=== PATIENT | male | born 1930 | race Caucasian/White ===

== ENCOUNTER 2018-05-24 11:53 | Inpatient (IN) ==
--- NOTE | 2018-05-24 12:48 | Emergency Department Note ---
General Adult HPI - General Chief complaint: Weakness Stated complaint: weakness Time Seen by Provider: 05/24/18 12:02 Source: patient, family Mode of arrival: wheelchair Limitations: physical limitation (pt in wheelchair, is able to stand and pivot with assistance.) - History of Present Illness HPI Narrative: 88-year-old male in ED with daughter and brother present. Patient was at wound care this morning and advised to come into the ED for a sepsis workup. Daughter states patient has had sepsis in the past and been hospitalized. Patient has had ongoing problems with his left diabetic foot ulcer, it gets better then it gets worse but it has never completely gone away. Patient was a sausage smoker up until this year when he was hospitalized. Patient lives at home with his grandson. Patient now uses wheelchair and does need assistance with transfers. Patient was supposed to be going to wound care twice a week and now goes as he chooses. Patient states he has no pain in his lower extremity, but he is irritated because he wants to be active again. Patient has used [employer] since age 18, does not use alcohol or marijuana. Onset (ago): year(s) (1) Location: left, lower extremity Radiation: non-radiation Associated symptoms: Reports: fever/chills, weakness. Denies: confusion, chest pain, cough, diaphoresis, headaches, loss of appetite, malaise, nausea/vomiting Treatments Prior to Arrival: other (wound care) - Related Data Home Medications Medication Instructions Recorded Confirmed Dutasteride [Avodart] 0.5 mg PO HS 05/24/18 05/24/18 Empagliflozin [Jardiance] 25 mg PO DAILY 05/24/18 05/24/18 Hydrochlorothiazide [Oretic] 25 mg PO DAILY 05/24/18 05/24/18 Insulin Degludec [Tresiba 10 unit SQ DAILY 05/24/18 05/24/18 Flextouch U-200] Lovastatin 40 mg PO QHS 05/24/18 05/24/18 Metoprolol Succinate [Toprol Xl] 25 mg PO DAILY 05/24/18 05/24/18 Repaglinide [Prandin] 1 mg PO TID 05/24/18 05/24/18 Rivaroxaban [Xarelto] 20 mg PO DAILY 05/24/18 05/24/18 Tamsulosin [Flomax] 0.4 mg PO HS 05/24/18 05/24/18 metFORMIN HCL [Metformin HCl] 1,000 mg PO DAILY 05/24/18 05/24/18 Allergies Allergy/AdvReac Type Severity Reaction Status Date / Time No Known Drug Allergies Allergy Verified 12/09/16 11:09 Review of Systems All systems ED: reviewed and negative except as stated. Past Medical History - Past Medical History PMFSH Narrative: All Active Problems Avulsion of skin (Acute) Left foot chronic diabetic ulcer on the plantar service the left first metatarsal head. Was hospitalized for this April 2015 and February 2018. Advanced arthritis bilateral knees, hypercholesteremia, some element of congestive heart failure, echocardiogram performed in December 2013 with results of mild increased left ventricular concentric hypertrophy. Grade 2 diastolic dysfunction noted based on the mitral inflow tract velocities. Mildly dilated right ventricle with preserved right ventricular systolic function along with biatrial enlargement. History of COPD, last A1c 2017 was 10.6% Medical history: Reports: non-contributory Surgical history ED: Reports: non-contributory - Social History smoking status: Former smoker Physical Exam Limitations: no limitations (wheelchair), physical limitation General appearance: alert, in no apparent distress Head: atraumatic, normocephalic, normal inspection Eye: Present: normal appearance, PERRL. Absent: conjunctival injection ENT: normal oropharynx, mucous membranes moist, TM's normal bilaterally, normal external ear exam Mouth: Present: tongue normal. Absent: lip swelling Teeth: Present: dental caries Throat: Present: normal inspection. Absent: tonsillar erythema, tonsillomegaly, tonsillar exudate Neck: Present: normal inspection. Absent: tenderness, lymphadenopathy Chest: Present: normal inspection, symmetric chest wall rise. Absent: tenderness Respiratory: Present: normal lung sounds bilaterally. Absent: respiratory distress, rales/crackles, wheezes Cardiovascular: Present: irregular rhythm Abdominal: Present: soft, normal bowel sounds. Absent: distention, tenderness, guarding, rebound, rigidity Extremities: Present: other (see wound care notes under medical history) Back: Present: normal inspection. Absent: tenderness, CVA tenderness (R), CVA tenderness (L) Neurological: Present: alert, oriented X3. Absent: normal gait Psychiatric: Present: normal affect, normal mood. Absent: depressed, agitated, anxious, flat affect Skin: Present: warm, dry, intact, normal color. Absent: cool, diaphoretic Course Vital Signs Temperature 99.8 F H 05/24/18 11:53 Pulse Rate 69 05/24/18 11:53 Respiratory Rate 18 05/24/18 11:53 Blood Pressure 122/68 05/24/18 11:53 Pulse Oximetry (%) 100 05/24/18 11:53 Temperature 99.1 F H 05/24/18 14:00 Pulse Rate 95 H 05/24/18 14:24 Respiratory Rate 18 05/24/18 14:24 Blood Pressure 122/62 05/24/18 14:24 Pulse Oximetry (%) 95 05/24/18 14:24 Medical Decision Making - MDM Narrative Medical decision making narrative: Patient did have a 101.3 temperature at wound care, upon arrival 99.6. 1 L normal saline was started after WBC returned 3.375 Zosyn IV administered. Patient's WBC 20.2, PT 16.5, INR 1.3H does have A. fib and is on Xarelto, sodium 131, carbon dioxide 19, anion gap 18, BUN 37, creatinine 1.6, glucose 274 lactic acid 4.1 Consulted who advised to place pt on vancomycin. Patient to be admitted. Consulted who advised he would consult with Mora later in the afternoon and see patient this evening. - Medical Records Medical records reviewed: Yes I reviewed the patient's medical records. Patient was admitted to [facility] February 26, 2018 for left leg cellulitis, severe sepsis complicated by acute tubular necrosis and metabolic encephalo radha, A. fib. Patient was discharged 3 days later. Wound care notes from 05/24/2018 visit: Left metatarsal head diabetic ulcer length 0.7, width 0.6, depth 0.3, non- tunneling, grade 2 with scant exudate. Left lower leg with skin tear, acute, length 0.6 cm, with 0.6, depth 0.1, non-tunneling. Left lower leg erythema 37 cm x 37.5 - Lab Data Lab results reviewed: Yes I reviewed the patient's lab results. Result diagrams: 05/24/18 12:28 05/24/18 12:28 Lab Results 05/24/18 05/24/18 05/24/18 Range/Units 12:28 12:28 12:28 WBC 20.2 H (4.5-11.0) K/mcL RBC 4.99 (4.50-5.90) M/mcL Hgb 14.4 (13.5-16.5) g/dL Hct 44.4 (41.0-55.0) % MCV 89.0 (80.0-100.0) fL MCH 28.8 (26.0-34.0) pg MCHC 32.4 (31.0-36.0) g/dL RDW 15.3 H (11.5-14.5) % Plt Count 152 (140-440) K/mcL MPV 9.1 (7.4-10.4) fL Gran % 94.7 H (38.0-78.0) % Lymph % (Auto) 3.6 L (15.5-49.0) % [place] % (Auto) 1.6 (1.0-12.0) % Eos % (Auto) 0.1 (0.0-7.0) % Baso % (Auto) 0 (0.0-2.0) % Gran # 19.1 H (1.8-8.0) K/mcL Lymph # (Auto) 0.7 L (1.5-4.8) K/mcL [place] # (Auto) 0.3 (0.1-0.9) K/mcL Eos # (Auto) 0 (0.0-0.7) K/mcL Baso # (Auto) 0 (0.0-0.3) K/mcL PT (11.9-14.5) sec INR (0.9-1.1) APTT (20-37) sec VBG Lactic Acid 4.1 H* (0.5-2.0) mmol/L Sodium 131 L (133-145) mmol/L Potassium 3.6 (3.3-5.1) mmol/L Chloride 94 L (96-108) mmol/L Carbon Dioxide 19 L (22-30) mmol/L Anion Gap 18.0 H (8-16) BUN 37 H (8-23) mg/dl Creatinine 1.6 H (0.7-1.2) mg/dl GFR Calculation 38 Glucose 274 H (70-105) mg/dL Calcium 9.3 (8.6-10.4) mg/dl Total Bilirubin 0.9 (0.0-1.0) mg/dL AST 24 (0-37) U/l ALT 14 (0-40) U/l Alkaline Phosphatase 86 (39-117) U/L Total Protein 7.9 (5.9-8.4) gm/dL Albumin 3.9 (3.2-5.2) gm/dL Globulin 4.0 H (2.2-3.7) gm/dL Albumin/Globulin Ratio 1.0 (1.0-2.3) 05/24/18 Range/Units 12:28 WBC (4.5-11.0) K/mcL RBC (4.50-5.90) M/mcL Hgb (13.5-16.5) g/dL Hct (41.0-55.0) % MCV (80.0-100.0) fL MCH (26.0-34.0) pg MCHC (31.0-36.0) g/dL RDW (11.5-14.5) % Plt Count (140-440) K/mcL MPV (7.4-10.4) fL Gran % (38.0-78.0) % Lymph % (Auto) (15.5-49.0) % [place] % (Auto) (1.0-12.0) % Eos % (Auto) (0.0-7.0) % Baso % (Auto) (0.0-2.0) % Gran # (1.8-8.0) K/mcL Lymph # (Auto) (1.5-4.8) K/mcL [place] # (Auto) (0.1-0.9) K/mcL Eos # (Auto) (0.0-0.7) K/mcL Baso # (Auto) (0.0-0.3) K/mcL PT 16.5 H (11.9-14.5) sec INR 1.3 H (0.9-1.1) APTT 36 (20-37) sec VBG Lactic Acid (0.5-2.0) mmol/L Sodium (133-145) mmol/L Potassium (3.3-5.1) mmol/L Chloride (96-108) mmol/L Carbon Dioxide (22-30) mmol/L Anion Gap (8-16) BUN (8-23) mg/dl Creatinine (0.7-1.2) mg/dl GFR Calculation Glucose (70-105) mg/dL Calcium (8.6-10.4) mg/dl Total Bilirubin (0.0-1.0) mg/dL AST (0-37) U/l ALT (0-40) U/l Alkaline Phosphatase (39-117) U/L Total Protein (5.9-8.4) gm/dL Albumin (3.2-5.2) gm/dL Globulin (2.2-3.7) gm/dL Albumin/Globulin Ratio (1.0-2.3) - Radiology Data Radiology results reviewed: Yes I reviewed the patient's radiology results. Chest x-ray: FINDINGS: The lungs are clear and normally expanded. The heart is mildly enlarged but magnified by portable technique. There is no congestive heart failure or pleural effusion. The aorta is mildly tortuous. IMPRESSION: Borderline cardiomegaly and no evidence of pneumonia Tib-fib x-ray: Normal exam Left foot x-ray: HISTORY: Left foot pain and possible osteomyelitis FINDINGS: There is a severe hallux valgus deformity at the first metatarsal phalangeal joint. Joint space is mildly narrowed and there are small marginal spurs. Remainder of the foot is normal. There is no fracture or dislocation. No bone erosion or periosteal elevation are present. IMPRESSION: Hallux valgus deformity and no evidence of osteomyelitis Disposition Pt seen by FOOD SERVICE COORDINATOR/PA only: No (Marnie) Clinical Impression: Sepsis Qualifiers: Sepsis type: sepsis due to unspecified organism Qualified Code(s): A41.9 - Sepsis, unspecified organism Disposition: Xfer As Inpt ([facility]) Condition: Fair Referrals: Melania Yi ARNP [Primary Care Provider] - Time of Disposition: 14:34
[2018-05-24 12:54] LABS: Basophils # (Auto) 0 K/mcL (0.0-0.3); Basophils % (Auto) 0 % (0.0-2.0); Eosinophils # (Auto) 0 K/mcL (0.0-0.7); Eosinophils % (Auto) 0.1 % (0.0-7.0); Granulocytes % (Auto) 94.7 % (38.0-78.0); Lymphocytes # (Auto) 0.7 K/mcL (1.5-4.8); Lymphocytes % (Auto) 3.6 % (15.5-49.0); Mean Corpuscular HGB Conc 32.4 g/dL (31.0-36.0); Monocytes # (Auto) 0.3 K/mcL (0.1-0.9); Monocytes % (Auto) 1.6 % (1.0-12.0); Platelet Count 152 K/mcL (140-440); RBC 4.99 M/mcL (4.50-5.90); Red Cell Distribution Width 15.3 % (11.5-14.5)
[2018-05-24 13:19] LABS: ALT/SGPT 14 U/l (0-40); Albumin 3.9 gm/dL (3.2-5.2); Alkaline Phosphatase 86 U/L (39-117); Blood Urea Nitrogen 37 mg/dl (8-23)
[2018-05-24] MEDS ORDERED: 0.9 % SODIUM CHLORIDE 1,000 ML IV ONE ×5 (13:19→18:50)
[2018-05-24] MEDS ORDERED: PIPERACILLIN SODIUM/TAZOBACTAM 3.375 GM in DEXTROSE 5% IN WATER 50 ML IV ONE (13:19)
--- NOTE | 2018-05-24 13:57 | XRay Report ---
HISTORY: Sepsis and weakness FINDINGS: The lungs are clear and normally expanded. The heart is mildly enlarged but magnified by portable technique. There is no congestive heart failure or pleural effusion. The aorta is mildly tortuous. IMPRESSION: Borderline cardiomegaly and no evidence of pneumonia Interpreted and Authenticated by: Richard Bush 05/24/18
--- NOTE | 2018-05-24 13:58 | XRay Report ---
HISTORY: Sepsis, leg pain and evaluate for osteomyelitis FINDINGS: Three views of the left lower leg were obtained. There is moderately severe arthritis in the knee predominantly involving the medial joint compartment. The tibia and fibula are normally mineralized. There is no bone erosion or periosteal elevation. No fracture or destructive bone lesion are present. The ankle joint space appears normal. IMPRESSION: No evidence of osteomyelitis or acute bony injury Interpreted and Authenticated by: Richard Bush 05/24/18
--- NOTE | 2018-05-24 14:00 | XRay Report ---
HISTORY: Left foot pain and possible osteomyelitis FINDINGS: There is a severe hallux valgus deformity at the first metatarsal phalangeal joint. Joint space is mildly narrowed and there are small marginal spurs. Remainder of the foot is normal. There is no fracture or dislocation. No bone erosion or periosteal elevation are present. IMPRESSION: Hallux valgus deformity and no evidence of osteomyelitis Interpreted and Authenticated by: Richard Bush 05/24/18
[2018-05-24] MEDS ORDERED: VANCOMYCIN 500 MG in 0.9 % SODIUM CHLORIDE 100 ML IV ONE ×2 (14:21→16:00)
[2018-05-24] MEDS ORDERED: VANCOMYCIN 1,000 MG in 0.9 % SODIUM CHLORIDE 250 ML IV ONE (14:25)
[2018-05-24 14:37] LABS: Appearance,Urine CLEAR; Bacteria,Urine 0 /hpf (0); Bilirubin,Urine NEG (NEG); Color,Urine YELLOW; Glucose,Urine (UA) >=500 mg/dL (NEG); Leukocyte Esterase,Urine NEG /uL (NEG); Mucus,Urine FEW /hpf (0); Protein,Urine 30 mg/dL (NEG); Specific Gravity,Urine 1.028 (1.000-1.035); Urine Blood 0.03 mg/dL (<0.03); Urine RBC 0 /hpf (0-1); Urine Squamous Epithelial Cell 0 /hpf (0-4); Urine WBC < 1 /hpf (0-4); Urobilinogen,Urine NEG (NEG)
--- NOTE | 2018-05-24 14:38 | Internal Med History&Physical ---
Medical - H&P: [facility] Patient information: Note initiated : 05/24/18 at 2:37 pm Service Date, if different from initiated Date: [] Patient: Marcos,Asa a 88 y/o M admitted on for weakness. Chief Complaint: [] Chief complaint: weakness, fever History of present illness: Mr. Rodríguez is a 88 year old M known diabetic with medications including foot ulcers/neuropathy being managed the wound care clinic. Patient presents to the ER with 2 days' onset of worsening weakness inability to bear weight and pain along with redness involving left lower extremity. Patient endorses associated shaking chills and fever along with increasing malaise. Per family patient has been quite active until recently and has had a progressive decline since development of lower extremity ulcer. he lives at [facility] and receives help from his grandson Papo. He denies recent fall, trauma, sick contacts rate he denies chest pain headache but feels very weak and lethargic and was able to only answering yes and no. Initial workup was consistent with severe sepsis [place] [address], lactic acid of 4.1 and fever of 102. Patient was started on broad antibiotic coverage after cultures were drawn. Subsequently hospitalist service was consulted At the time evaluation patient is in extreme distress unable to talk experiencing rigors. Blood pressure dropped with heart rate consistently around 130. 4 L of crystalloids was rapidly infused along with initiation of pressors after multiple IV accesses were secured. Initial [place] score 16. Review of systems 10 point review of system was performed and is negative except for discussed above Medical - H&P: PMH Medical history: DM type II diabetic foot ulcer Hypertension Diabetic neuropathy Hyperlipidemia Anticoagulation on rivaroxaban Atrial fibrillation Degenerative joint disease History of COPD Pertinent family history: Nonrelevant to presenting symptoms Social history: Lives in [facility] with his grandson Former smoker Medical - H&P: Meds Home Medications Medication Instructions Recorded Confirmed Type Dutasteride [Avodart] 0.5 mg PO HS 05/24/18 05/24/18 History Empagliflozin [Jardiance] 25 mg PO DAILY 05/24/18 05/24/18 History Hydrochlorothiazide [Oretic] 25 mg PO DAILY 05/24/18 05/24/18 History Insulin Degludec [Tresiba 10 unit SQ DAILY 05/24/18 05/24/18 History Flextouch U-200] Lovastatin 40 mg PO QHS 05/24/18 05/24/18 History Metoprolol Succinate [Toprol Xl] 25 mg PO DAILY 05/24/18 05/24/18 History Repaglinide [Prandin] 1 mg PO TID 05/24/18 05/24/18 History Rivaroxaban [Xarelto] 20 mg PO DAILY 05/24/18 05/24/18 History Tamsulosin [Flomax] 0.4 mg PO HS 05/24/18 05/24/18 History metFORMIN HCL [Metformin HCl] 1,000 mg PO DAILY 05/24/18 05/24/18 History Allergies Allergy/AdvReac Type Severity Reaction Status Date / Time No Known Drug Allergies Allergy Verified 12/09/16 11:09 Medical - H&P: Exam - Constitutional Vitals: Temp Pulse Resp BP Pulse Ox 99.1 F H 95 H 18 122/62 95 05/24/18 14:00 05/24/18 14:24 05/24/18 14:24 05/24/18 14:24 05/24/18 14:24 General appearance: moderate distress Exam: Extreme distress from riders Head normocephalic Lethargic and confused Oral cavity dry parched lips Neck no lymphadenopathy No ear discharge S1 and S2 tachycardia irregular Diminished breath sounds bases Abdomen soft nontender Lower extremity- extensive cellulitis with petechial changes left lower extremity Also upper lateral left leg, lymphangitis change except extending to the groin medially Skin no suspicious lesion Psych lethargic fatigue Neuro very distressed and unable to respond to questions however moving all 4 extremities Medical - H&P: Reslt - Labs CBC & Chem 7: 05/25/18 03:50 05/25/18 03:50 Labs: Short CBC 05/24/18 Range/Units 12:28 WBC 20.2 H (4.5-11.0) K/mcL Hgb 14.4 (13.5-16.5) g/dL Hct 44.4 (41.0-55.0) % Plt Count 152 (140-440) K/mcL BMP 05/24/18 12:28 Sodium 131 L Potassium 3.6 Chloride 94 L Carbon Dioxide 19 L BUN 37 H Creatinine 1.6 H Glucose 274 H Calcium 9.3 Liver Function 05/24/18 Range/Units 12:28 Total Bilirubin 0.9 (0.0-1.0) mg/dL AST 24 (0-37) U/l ALT 14 (0-40) U/l Alkaline Phosphatase 86 (39-117) U/L Albumin 3.9 (3.2-5.2) gm/dL Medical - H&P: A/P (1) Septic shock Current visit: Yes Status: Acute * Septic shock-secondary to left lower extremity cellulitis/lymphangitis. Wound care consulted. Broad antibiotic coverage. Over 4 L crystalloid infused. Continue pressors to keep map over 65. Panculturs. Lactate 4.1. Trend venous lactate. White count 20.2, pH 7.34. Secure central venous access * Left lower extremity cellulitis with lymphangitis-underlying diabetes. Empiric coverage for gram-negative, anaerobes, staph and strep. Wound care consulted * Acute mental status change secondary to sepsis end organ dysfunction * Acute renal failure secondary to septic shock. Aggressive crystalloids and continue monitoring renal function/urine output. * DM type II, basal prandial insulin * History of atrial fibrillation -rate controlled on metoprolol * Anticoagulation continue rivaroxaban * Hyperlipidemia continue statin * DNR Plan * Sepsis management per guidelines * Crystalloids, vasopressors, lower extremity CT in 24-48 hours once creatinine improves, cultures, but venous lactate trending * Pre-existing medical condition management on home meds * monitor renal function * Very high risk mortality admitted to ICU in light of [place] score 16 and septic shock Total critical care time spent on management of septic shock in this patient with cellulitis lymphangitis with acute end organ dysfunction including over 35 minutes. An additional 70 minutes spent on history and physical, interpretation lab and imaging and discussion with ER physician
[2018-05-24] MEDS ORDERED: HYDROmorphone 2 MG/ML VIAL IV ONE (14:47)
[2018-05-24] MEDS ORDERED: DEXTROSE 50% 50 ML VIAL IV PRN ×2 (15:35→20:35)
[2018-05-24] MEDS ORDERED: POTASSIUM CHLORIDE 20 MEQ PACKET PO PRN ×2 (15:35→20:35)
[2018-05-24] MEDS ORDERED: ACETAMINOPHEN 1,000 MG/100 ML BOTTLE IV PRN ×2 (15:35→20:35)
[2018-05-24] MEDS ORDERED: VANCOMYCIN PER PHARMACY IV SCH ×2 (15:35→20:35)
[2018-05-24] MEDS ORDERED: IPRATROPIUM/ALBUTEROL 3 ML AMPUL.NEB NEB PRN ×2 (15:35→20:35)
[2018-05-24] MEDS ORDERED: DEXTROSE 31 GM ORAL.SUSP PO PRN ×2 (15:35→20:35)
[2018-05-24] MEDS ORDERED: MAGNESIUM SULFATE 2 GM/50 ML BAG IV PRN ×2 (15:35→20:35)
[2018-05-24] MEDS ORDERED: ACETAMINOPHEN 325 MG TABLET PO PRN ×2 (15:35→20:35)
[2018-05-24] MEDS ORDERED: ONDANSETRON 4 MG/2 ML VIAL IV PRN ×2 (15:35→20:35)
[2018-05-24] MEDS ORDERED: 0.9 % SODIUM CHLORIDE 1,000 ML IV SCH ×3 (15:35→20:35)
[2018-05-24 16:14] LABS: ABG Methemoglobin 0 % (0.4-1.5); VBG Base Excess -9.5 (-2.0-2.0); VBG HCO3 14.7 mmol/L (24.0-28.0); VBG Oxygen Saturation 87.7 % (40.0-70.0); VBG PCO2 27.8 mmHg (41.0-51.0); VBG PH 7.34 U (7.32-7.42); VBG PO2 64 mmHg (25-40); VBG Total CO2 15.5 mmol/L (25.0-29.0)
[2018-05-24 16:42] LABS: C-Reactive Protein 21.7 mg/dl (0.0-0.8)
[2018-05-24] MEDS ORDERED: INSULIN LISPRO 1 UNIT/0.01 ML UNIT SQ SCH (17:00)
[2018-05-24] MEDS ORDERED: REPAGLINIDE 1 MG TABLET PO SCH (17:30)
[2018-05-24] MEDS ORDERED: 0.9 % SODIUM CHLORIDE 250 ML IV SCH (17:45)
[2018-05-24] MEDS ORDERED: NOREPINEPHRINE BITARTRATE 16 MG in 0.9 % SODIUM CHLORIDE 234 ML IV SCH (18:00)
[2018-05-24] MEDS ORDERED: NOREPINEPHRINE BITARTRATE 4 MG/4 ML VIAL IV ONE (18:07)
[2018-05-24] MEDS: PIPERACILLIN SODIUM/TAZOBACTAM 3.375 GM in DEXTROSE 5% IN WATER 50 ML IV SCH (18:25)
--- NOTE | 2018-05-24 19:41 | General Surgery Consult Note ---
History of Present Illness Patient information: Note initiated : 05/24/18 at 7:32 pm Service Date, if different from initiated Date: [] Patient: MarcosAsa a 88 y/o M admitted on 05/24/18 for weakness. Chief Complaint: [] Consult date: 05/24/18 Requesting physician: Yordy Velazco (Wound / Skin sepsis) History of present illness: I saw this patient in ICU 120-C along with Dr. Velazco Hospitalist physician and Joyce / Velma RNs ICU. Mr. Rodríguez is an established patient at wound care center, [facility]. He was admitted to ICU after evaluation in in Wound Center and ER earlier today. Patient had significant interval change in his presentation, Fever, tachycardia, leucocytosis with sepsis due to csssi, phlebitis of varicose vein and swelling of LEFT leg, He has a chronic DFU Seo 2; under left 1 st metatarsal head. 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 X Ray is negative for osteomyelitis. He has chronic degenerative changes. Chest X Ray is negative for pneumonia and CHF. He has borderline cardiomegaly. Medications and Allergies Home Medications Medication Instructions Recorded Confirmed Type Dutasteride [Avodart] 0.5 mg PO HS 05/24/18 05/24/18 History Empagliflozin [Jardiance] 25 mg PO DAILY 05/24/18 05/24/18 History Hydrochlorothiazide [Oretic] 25 mg PO DAILY 05/24/18 05/24/18 History Insulin Degludec [Tresiba 10 unit SQ DAILY 05/24/18 05/24/18 History Flextouch U-200] Metoprolol Succinate [Toprol Xl] 25 mg PO DAILY 05/24/18 05/24/18 History RX: Lovastatin 40 mg PO QHS 05/24/18 05/24/18 History Repaglinide [Prandin] 1 mg PO TID 05/24/18 05/24/18 History Rivaroxaban [Xarelto] 20 mg PO DAILY 05/24/18 05/24/18 History Tamsulosin [Flomax] 0.4 mg PO HS 05/24/18 05/24/18 History metFORMIN HCL [Metformin HCl] 1,000 mg PO DAILY 05/24/18 05/24/18 History Allergies Allergy/AdvReac Type Severity Reaction Status Date / Time No Known Drug Allergies Allergy Verified 12/09/16 11:09 Exam Temp Pulse Resp BP Pulse Ox 105.2 F H 122 H 21 133/70 93 05/24/18 16:16 05/24/18 15:20 05/24/18 16:16 05/24/18 16:16 05/24/18 16:16 - General physical appearance well developed, well nourished, no distress, no pain, chronically ill - Eyes PERRL, normal ocular movement - ENT normal pinna, normal nares, normal mucosa, no congestion, poor shelter (Multiple caries teeth ) - Head Head exam IM: Present: atraumatic, normal inspection, normocephalic - Neck no masses, trachea midline, no venous distension - Cardiovascular Cardiovascular exam IM: Present: irregular rhythm, tachycardia - Respiratory normal respiratory effort, clear to auscultation - Abdomen Abdomen: Present: soft, non tender, bowel sounds - Integumentary Present: other (Phlebitis, periphlebitis along lower 2/3 of left leg around torutouous varicosities of veins. Local warmth, erythema, pigmentation and tenderness. See demarcation line drawn around discolored skin,) - Neurologic Present: confused, other (Peripheral mixed diabetic neuropathy left foot and leg >> than right foot / leg. ) - Musculoskeletal Present: other (Hallux valgus left great toe with DFU Seo 2; under 1 st metatarsal head . ) - Psychiatric Present: other (confused. ) Results - Labs 05/25/18 03:50 05/25/18 03:50 Abnormal lab results 05/24/18 05/24/18 05/24/18 Range/Units 12:28 12:28 12:28 WBC 20.2 H (4.5-11.0) K/mcL RDW 15.3 H (11.5-14.5) % Gran % 94.7 H (38.0-78.0) % Lymph % (Auto) 3.6 L (15.5-49.0) % Gran # 19.1 H (1.8-8.0) K/mcL Lymph # (Auto) 0.7 L (1.5-4.8) K/mcL ESR (0-15) mm/hr PT (11.9-14.5) sec INR (0.9-1.1) ABG Methemoglobin (0.4-1.5) % VBG pCO2 (41.0-51.0) mmHg VBG pO2 (25-40) mmHg VBG HCO3 (24.0-28.0) mmol/L VBG Total CO2 (25.0-29.0) mmol/L VBG O2 Saturation (40.0-70.0) % VBG Base Excess (-2.0-2.0) VBG Lactic Acid 4.1 H* (0.5-2.0) mmol/L Carboxyhemoglobin (0.0-1.5) % THgb Total Hemoglobin (13.5-16.5) gm/dL Sodium 131 L (133-145) mmol/L Chloride 94 L (96-108) mmol/L Carbon Dioxide 19 L (22-30) mmol/L Anion Gap 18.0 H (8-16) BUN 37 H (8-23) mg/dl Creatinine 1.6 H (0.7-1.2) mg/dl Glucose 274 H (70-105) mg/dL C-Reactive Protein (0.0-0.8) mg/dl Globulin 4.0 H (2.2-3.7) gm/dL Urine Protein (NEG) mg/dL Urine Glucose (UA) (NEG) mg/dL Urine Ketones (NEG) mg/dL Urine Occult Blood (<0.03) mg/dL 05/24/18 05/24/18 05/24/18 Range/Units 12:28 14:00 15:51 WBC (4.5-11.0) K/mcL RDW (11.5-14.5) % Gran % (38.0-78.0) % Lymph % (Auto) (15.5-49.0) % Gran # (1.8-8.0) K/mcL Lymph # (Auto) (1.5-4.8) K/mcL ESR 36 H (0-15) mm/hr PT 16.5 H (11.9-14.5) sec INR 1.3 H (0.9-1.1) ABG Methemoglobin (0.4-1.5) % VBG pCO2 (41.0-51.0) mmHg VBG pO2 (25-40) mmHg VBG HCO3 (24.0-28.0) mmol/L VBG Total CO2 (25.0-29.0) mmol/L VBG O2 Saturation (40.0-70.0) % VBG Base Excess (-2.0-2.0) VBG Lactic Acid (0.5-2.0) mmol/L Carboxyhemoglobin (0.0-1.5) % THgb Total Hemoglobin (13.5-16.5) gm/dL Sodium (133-145) mmol/L Chloride (96-108) mmol/L Carbon Dioxide (22-30) mmol/L Anion Gap (8-16) BUN (8-23) mg/dl Creatinine (0.7-1.2) mg/dl Glucose (70-105) mg/dL C-Reactive Protein (0.0-0.8) mg/dl Globulin (2.2-3.7) gm/dL Urine Protein 30 A (NEG) mg/dL Urine Glucose (UA) >=500 A (NEG) mg/dL Urine Ketones 5/tr A (NEG) mg/dL Urine Occult Blood 0.03 A (<0.03) mg/dL 05/24/18 05/24/18 Range/Units 15:51 15:51 WBC (4.5-11.0) K/mcL RDW (11.5-14.5) % Gran % (38.0-78.0) % Lymph % (Auto) (15.5-49.0) % Gran # (1.8-8.0) K/mcL Lymph # (Auto) (1.5-4.8) K/mcL ESR (0-15) mm/hr PT (11.9-14.5) sec INR (0.9-1.1) ABG Methemoglobin 0 L (0.4-1.5) % VBG pCO2 27.8 L (41.0-51.0) mmHg VBG pO2 64 H (25-40) mmHg VBG HCO3 14.7 L (24.0-28.0) mmol/L VBG Total CO2 15.5 L (25.0-29.0) mmol/L VBG O2 Saturation 87.7 H (40.0-70.0) % VBG Base Excess -9.5 L (-2.0-2.0) VBG Lactic Acid (0.5-2.0) mmol/L Carboxyhemoglobin 3.4 H (0.0-1.5) % THgb Total Hemoglobin 13.0 L (13.5-16.5) gm/dL Sodium (133-145) mmol/L Chloride (96-108) mmol/L Carbon Dioxide (22-30) mmol/L Anion Gap (8-16) BUN (8-23) mg/dl Creatinine (0.7-1.2) mg/dl Glucose (70-105) mg/dL C-Reactive Protein 21.7 H (0.0-0.8) mg/dl Globulin (2.2-3.7) gm/dL Urine Protein (NEG) mg/dL Urine Glucose (UA) (NEG) mg/dL Urine Ketones (NEG) mg/dL Urine Occult Blood (<0.03) mg/dL Diabetes panel 05/24/18 Range/Units 12:28 Sodium 131 L (133-145) mmol/L Potassium 3.6 (3.3-5.1) mmol/L Chloride 94 L (96-108) mmol/L Carbon Dioxide 19 L (22-30) mmol/L BUN 37 H (8-23) mg/dl Creatinine 1.6 H (0.7-1.2) mg/dl Glucose 274 H (70-105) mg/dL Calcium 9.3 (8.6-10.4) mg/dl AST 24 (0-37) U/l ALT 14 (0-40) U/l Alkaline Phosphatase 86 (39-117) U/L Total Protein 7.9 (5.9-8.4) gm/dL Albumin 3.9 (3.2-5.2) gm/dL Calcium panel 05/24/18 Range/Units 12:28 Calcium 9.3 (8.6-10.4) mg/dl Albumin 3.9 (3.2-5.2) gm/dL Pituitary panel 05/24/18 Range/Units 12:28 Sodium 131 L (133-145) mmol/L Potassium 3.6 (3.3-5.1) mmol/L Chloride 94 L (96-108) mmol/L Carbon Dioxide 19 L (22-30) mmol/L BUN 37 H (8-23) mg/dl Creatinine 1.6 H (0.7-1.2) mg/dl Glucose 274 H (70-105) mg/dL Calcium 9.3 (8.6-10.4) mg/dl Adrenal panel 05/24/18 Range/Units 12:28 Sodium 131 L (133-145) mmol/L Potassium 3.6 (3.3-5.1) mmol/L Chloride 94 L (96-108) mmol/L Carbon Dioxide 19 L (22-30) mmol/L BUN 37 H (8-23) mg/dl Creatinine 1.6 H (0.7-1.2) mg/dl Glucose 274 H (70-105) mg/dL Calcium 9.3 (8.6-10.4) mg/dl Total Bilirubin 0.9 (0.0-1.0) mg/dL AST 24 (0-37) U/l ALT 14 (0-40) U/l Alkaline Phosphatase 86 (39-117) U/L Total Protein 7.9 (5.9-8.4) gm/dL Albumin 3.9 (3.2-5.2) gm/dL All other labs normal. Assessment and Plan (1) Sepsis Assessment: Acute exacerbation of csssi left foot lower leg dermatitis and post phlebitis syndrome skin . SUPERADDED PHLEBITIS OF VARICOSE VEINS Left medial leg. Plan: Conservative management. See wound care orders. Will follow along with hospitalist during this hospitalization. 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
[2018-05-24] MEDS ORDERED: NICOTINE 21 MG PATCH TOPICAL ONE (20:08)
[2018-05-24] MEDS ORDERED: NICOTINE 21 MG PATCH ONE (20:18)
[2018-05-24] MEDS ORDERED: TAMSULOSIN 0.4 MG CAPSULE PO SCH (21:00)
[2018-05-24] MEDS ORDERED: SENNOSIDES/DOCUSATE SODIUM 1 TAB TABLET PO SCH (21:00)
[2018-05-24] MEDS ORDERED: DOCUSATE SODIUM 100 MG CAPSULE PO SCH (21:00)
[2018-05-24] MEDS ORDERED: DUTASTERIDE 0.5 MG CAPSULE PO SCH (21:00)
[2018-05-24] MEDS ORDERED: SIMVASTATIN 20 MG TABLET PO SCH (21:00)
[2018-05-24] MEDS: 0.9 % SODIUM CHLORIDE 1,000 ML IV SCH (21:48)
[2018-05-24] MEDS: 0.9 % SODIUM CHLORIDE 250 ML IV SCH (21:48)
[2018-05-24] MEDS: TAMSULOSIN 0.4 MG CAPSULE PO SCH (21:53)
[2018-05-24] MEDS: DOCUSATE SODIUM 100 MG CAPSULE PO SCH (21:54)
[2018-05-24] MEDS: SENNOSIDES/DOCUSATE SODIUM 1 TAB TABLET PO SCH (21:55)
[2018-05-24] MEDS: INSULIN LISPRO 1 UNIT/0.01 ML UNIT SQ SCH (21:55)
[2018-05-24] MEDS: DUTASTERIDE 0.5 MG CAPSULE PO SCH (21:56)
[2018-05-24] MEDS: SIMVASTATIN 20 MG TABLET PO SCH (21:57)
[2018-05-24] MEDS ORDERED: 0.9 % SODIUM CHLORIDE 10 ML SYRINGE IV SCH (22:00)
[2018-05-24] MEDS: 0.9 % SODIUM CHLORIDE 10 ML SYRINGE IV SCH (22:07)
[2018-05-25] MEDS: PIPERACILLIN SODIUM/TAZOBACTAM 3.375 GM in DEXTROSE 5% IN WATER 50 ML IV SCH ×5 (00:36→18:32)
[2018-05-25 04:58] LABS: Mean Cell Volume 90.8 fL (80.0-100.0); Mean Corpuscular HGB Conc 32.1 g/dL (31.0-36.0); Platelet Count 110 K/mcL (140-440); RBC 3.96 M/mcL (4.50-5.90); Red Cell Distribution Width 15.2 % (11.5-14.5)
[2018-05-25 05:19] LABS: ALT/SGPT 45 U/l (0-40); Albumin 2.7 gm/dL (3.2-5.2); Albumin/Globulin Ratio 0.9 (1.0-2.3); Alkaline Phosphatase 65 U/L (39-117); Bilirubin,Direct < 0.2 mg/dL (0.0-0.3); Blood Urea Nitrogen 33 mg/dl (8-23); Gamma Glutamyl Transpeptidase 25 U/L (8-61); Uric Acid 5.6 mg/dL (2.5-8.0)
[2018-05-25] MEDS: 0.9 % SODIUM CHLORIDE 10 ML SYRINGE IV SCH ×4 (05:51→22:14)
[2018-05-25 06:18] LABS: Band Neutrophils % 4 % (0-10); Lymphocytes % 11 % (15-49); Monocytes % (Manual) 7 % (1-12); Platelet Estimate DECREASED (NORMAL); RBC Morphology NORMAL (NORMAL); Segmented Neutrophils % 78 % (38-78)
[2018-05-25] MEDS: REPAGLINIDE 1 MG TABLET PO SCH ×3 (07:30→18:32)
[2018-05-25] MEDS ORDERED: RIVAROXABAN 15 MG TABLET PO SCH (08:00)
[2018-05-25] MEDS: INSULIN LISPRO 1 UNIT/0.01 ML UNIT SQ SCH ×4 (08:46→22:13)
[2018-05-25] MEDS: INSULIN GLARGINE, HUMAN 1 UNIT/0.01 ML SQ SCH (08:48)
[2018-05-25] MEDS ORDERED: sitaGLIPtin 50 MG TABLET PO SCH (09:00)
[2018-05-25] MEDS ORDERED: INSULIN GLARGINE, HUMAN 1 UNIT/0.01 ML SQ SCH (09:00)
[2018-05-25] MEDS ORDERED: VANCOMYCIN 1,500 MG in 0.9 % SODIUM CHLORIDE 500 ML IV SCH (09:00)
[2018-05-25] MEDS ORDERED: EMPAGLIFLOZIN 25 MG PO SCH (09:00)
[2018-05-25] MEDS ORDERED: METOPROLOL SUCCINATE 25 MG TAB.XL.24H PO SCH (09:00)
[2018-05-25] MEDS ORDERED: MULTIVIT,THER IRON,CA,FA & MIN 1 TABLET PO SCH (09:00)
[2018-05-25] MEDS: VANCOMYCIN 1,500 MG in 0.9 % SODIUM CHLORIDE 500 ML IV SCH (09:00)
[2018-05-25] MEDS ORDERED: 0.9 % SODIUM CHLORIDE 10 ML SYRINGE IV PRN (09:09)
--- NOTE | 2018-05-25 09:11 | Internal Med Progress Note ---
Medical - PN: Subj Patient information: Note initiated : 05/25/18 at 9:06 am Service Date, if different from initiated Date: [] Patient: Marcos,Asa a 88 y/o M admitted on 05/24/18 for weakness. Chief Complaint: [] Interval history: Mr. Rodríguez is a 88 year old M known diabetic with medications including foot ulcers/neuropathy being managed the wound care clinic. Patient presents to the ER with 2 days' onset of worsening weakness inability to bear weight and pain along with redness involving left lower extremity. Patient endorses associated shaking chills and fever along with increasing malaise. Per family patient has been quite active until recently and has had a progressive decline since development of lower extremity ulcer. he lives at [facility] and receives help from his grandson Papo. He denies recent fall, trauma, sick contacts rate he denies chest pain headache but feels very weak and lethargic and was able to only answering yes and no. Initial workup was consistent with severe [place] [address], lactic acid of 4.1 and fever of 102. Patient was started on broad antibiotic coverage after cultures were drawn. Subsequently hospitalist service was consulted At the time evaluation patient is in extreme distress unable to talk experiencing rigors. Blood pressure dropped with heart rate consistently around 130. 4 L of crystalloids was rapidly infused along with initiation of pressors after multiple IV accesses were secured. Initial Lasalle score 16. 4/13-patient doing better. He vasopressors currently being weaned. Status post 5 L crystalloids. Map at goal. Improving urine output and renal function. White count down to 15,000. Fever defervesced. Cultures pending. CT lower extremity in 24 hours rule out drainable collection. Multiple family members at bedside. Discussed treatment plan/labs and imaging. No questions or concerns expressed by nursing staff or patient - Constitutional Vitals: Vital Signs Temp Pulse Resp BP Pulse Ox 98.5 F 122 H 17 89/59 96 05/25/18 05:05 05/24/18 15:20 05/25/18 05:05 05/25/18 05:01 05/25/18 05:05 Period Temp Pulse Resp BP Sys/Gastelum Pulse Ox Last 24 Hr 98.4 F-105.3 F 69-122 13-30 68-146/47-102 84-100 Intake and Output 05/24/18 05/25/1805/25/19 21:59 05:59 13:59 Intake Total 6297 790 Output Total 795 1190 Balance 5502 -400 Weight 204 lb 200 lb Intake & Output: Intake & Output 05/24/18 05/25/18 05/25/18 21:59 05:59 13:59 Intake Total 6297 790 Output Total 795 1190 Balance 5502 -400 Weight 204 lb 200 lb Intake: IV 6297 70 Sodium Chloride 0.9% 1,000 ml @ 5899 Wide Open IV BOLUS ONE Rx#: [id number] Zosyn 3.375 gm In Dextrose 5% 100 50 in Water 50 ml @ 100 mls/hr IV Q6H [facility] Rx#:[id number] Vancomycin 1,000 mg In Sodium 179 Chloride 0.9% 250 ml @ 250 mls/ hr IV ONCE ONE Rx#:[id number] Oral 720 Output: Urine Catheter Amount 270 1190 Void Amount 525 Other: Meal Egg salad sandwich Percent of Meal Consumed 25% Feeding Ability Assist with Tray Set Up Urine Appearance Clear Uretheral (Greer) Clear Urine Color Pale Dark Yellow Uretheral (Greer) Pale Urine Odor Normal Uretheral (Greer) Normal # Voids 1 General appearance: no acute distress Exam: Alert Nonlabored breathing Nondistended abdomen Tachycardia improved Foleys draining clear urine Medical - PN: Obj Da - Labs CBC & Chem 7: 05/25/18 03:50 05/25/18 03:50 Labs: Abnormal Lab Results 05/25/18 05/25/18 05/24/18 03:50 03:50 15:51 WBC 15.0 H RBC 3.96 L Hgb 11.6 L Hct 36.0 L RDW 15.2 H Plt Count 110 L Gran % Lymph % (Auto) Gran # Lymph # (Auto) Lymphocytes % 11 L Platelet Estimate Decreased A ESR PT INR ABG Methemoglobin 0 L VBG pCO2 27.8 L VBG pO2 64 H VBG HCO3 14.7 L VBG Total CO2 15.5 L VBG O2 Saturation 87.7 H VBG Base Excess -9.5 L VBG Lactic Acid Carboxyhemoglobin 3.4 H Total Hemoglobin 13.0 L Sodium 132 L Potassium 3.2 L Chloride Carbon Dioxide 17 L Anion Gap BUN 33 H Creatinine 1.5 H Glucose 227 H Calcium 7.7 L Total Bilirubin 2.4 H AST 64 H ALT 45 H C-Reactive Protein Total Protein 5.8 L Albumin 2.7 L Globulin Albumin/Globulin Ratio 0.9 L Urine Protein Urine Glucose (UA) Urine Ketones Urine Occult Blood 05/24/18 05/24/18 05/24/18 15:51 15:51 14:00 WBC RBC Hgb Hct RDW Plt Count Gran % Lymph % (Auto) Gran # Lymph # (Auto) Lymphocytes % Platelet Estimate ESR 36 H PT INR ABG Methemoglobin VBG pCO2 VBG pO2 VBG HCO3 VBG Total CO2 VBG O2 Saturation VBG Base Excess VBG Lactic Acid Carboxyhemoglobin Total Hemoglobin Sodium Potassium Chloride Carbon Dioxide Anion Gap BUN Creatinine Glucose Calcium Total Bilirubin AST ALT C-Reactive Protein 21.7 H Total Protein Albumin Globulin Albumin/Globulin Ratio Urine Protein 30 A Urine Glucose (UA) >=500 A Urine Ketones 5/tr A Urine Occult Blood 0.03 A 05/24/18 05/24/18 05/24/18 12:28 12:28 12:28 WBC RBC Hgb Hct RDW Plt Count Gran % Lymph % (Auto) Gran # Lymph # (Auto) Lymphocytes % Platelet Estimate ESR PT 16.5 H INR 1.3 H ABG Methemoglobin VBG pCO2 VBG pO2 VBG HCO3 VBG Total CO2 VBG O2 Saturation VBG Base Excess VBG Lactic Acid 4.1 H* Carboxyhemoglobin Total Hemoglobin Sodium 131 L Potassium Chloride 94 L Carbon Dioxide 19 L Anion Gap 18.0 H BUN 37 H Creatinine 1.6 H Glucose 274 H Calcium Total Bilirubin AST ALT C-Reactive Protein Total Protein Albumin Globulin 4.0 H Albumin/Globulin Ratio Urine Protein Urine Glucose (UA) Urine Ketones Urine Occult Blood 05/24/18 12:28 WBC 20.2 H RBC Hgb Hct RDW 15.3 H Plt Count Gran % 94.7 H Lymph % (Auto) 3.6 L Gran # 19.1 H Lymph # (Auto) 0.7 L Lymphocytes % Platelet Estimate ESR PT INR ABG Methemoglobin VBG pCO2 VBG pO2 VBG HCO3 VBG Total CO2 VBG O2 Saturation VBG Base Excess VBG Lactic Acid Carboxyhemoglobin Total Hemoglobin Sodium Potassium Chloride Carbon Dioxide Anion Gap BUN Creatinine Glucose Calcium Total Bilirubin AST ALT C-Reactive Protein Total Protein Albumin Globulin Albumin/Globulin Ratio Urine Protein Urine Glucose (UA) Urine Ketones Urine Occult Blood Meds: Medications Acetaminophen (Tylenol) 650 mg PO Q4-6HP PRN PRN Reason: PAIN/FEVER > 101 Albuterol/Ipratropium (Duoneb) 3 ml NEB Q4HP PRN PRN Reason: Shortness Of Breath Dextrose (Dextrose 50%) 0 ml IV UD PRN PRN Reason: Hypoglycemia Diagnostic Test (Pha) (Accu-Chek) 1 each FS ACHS [facility] Last Admin: 05/25/18 08:44 Dose: 1 each Documented by: Docusate Sodium (Colace) 100 mg PO BID [facility] Last Admin: 05/24/18 21:54 Dose: Not Given Documented by: Dutasteride (Avodart) 0.5 mg PO HS [facility] Last Admin: 05/24/18 21:56 Dose: 0.5 mg Documented by: Glucose (Insta-Glucose) 15 gm PO PRN PRN PRN Reason: Hypoglycemia Magnesium Sulfate (Magnesium Sulfate) 2 gm in 50 mls @ 50 mls/hr IV UD PRN PRN Reason: MG = or < 1.7 Norepinephrine Bitartrate 16 (mg/ Sodium Chloride) 250 mls @ 9.38 mls/hr IV Q24H [facility]; Protocol Sodium Chloride (Sodium Chloride 0.9%) 1,000 mls @ 50 mls/hr IV .Q20H [facility] Stop: 05/27/18 03:34 Last Admin: 05/24/18 21:48 Dose: Not Given Documented by: Sodium Chloride (Sodium Chloride 0.9%) 1,000 mls @ 0 mls/hr IV BOLUS [facility] Last Admin: 05/24/18 21:48 Dose: Not Given Documented by: Sodium Chloride (Sodium Chloride 0.9%) 250 mls @ 20 mls/hr IV .[id number] [facility] Last Admin: 05/24/18 21:48 Dose: Not Given Documented by: Acetaminophen (Ofirmev) 1,000 mg in 100 mls @ 200 mls/hr IV Q6HP PRN PRN Reason: PAIN/FEVER > 101 Piperacillin Sod/Tazobactam (Sod 3.375 gm/ Dextrose) 50 mls @ 100 mls/hr IV Q6H [facility]; Protocol Last Admin: 05/25/18 05:52 Dose: 100 mls/hr Documented by: Vancomycin HCl 1,500 mg/ (Sodium Chloride) 500 mls @ 333.3 mls/hr IV DAILY [facility] Insulin Glargine (Lantus) 10 unit SQ DAILY [facility] Last Admin: 05/25/18 08:48 Dose: 10 unit Documented by: Insulin Human Lispro (Humalog) 0 unit SQ ACHS [facility]; Protocol Last Admin: 05/25/18 08:46 Dose: 2 units Documented by: Iron Carb/Multivit/Engineering Test Mechanic/Folic Acid (Multivitamin W/Minerals) 1 tab PO DAILY [facility] Metoprolol Succinate (Toprol Xl) 25 mg PO DAILY [facility] Ondansetron HCl (Zofran) 4 mg IV Q4-6HP PRN PRN Reason: Nausea And Vomiting Potassium Chloride (Klor-Con) 40 meq PO DAILYP PRN PRN Reason: K+ < 3.5 Repaglinide (Prandin) 0.5 mg PO TIDAC [facility] Rivaroxaban (Xarelto) 15 mg PO QAMCC [facility] Senna/Docusate Sodium (Senna Plus Tablet) 1 tab PO [facility] Last Admin: 05/24/18 21:55 Dose: Not Given Documented by: Simvastatin (Zocor) 20 mg PO [facility] Last Admin: 05/24/18 21:57 Dose: 20 mg Documented by: Sitagliptin Phosphate (Januvia) 50 mg PO DAILY [facility] Sodium Chloride (Saline Flush) 10 ml IV Q8 [facility] Last Admin: 05/25/18 05:51 Dose: Not Given Documented by: Tamsulosin HCl (Flomax) 0.4 mg PO [facility] Last Admin: 05/24/18 21:53 Dose: 0.4 mg Documented by: Vancomycin HCl (Vancomycin Per Pharmacy) 1 order IV UD [facility]; Protocol - ABG Interpretation ABG results: 05/24/18 15:51 ABG Methemoglobin 0 L VBG pH 7.34 VBG pCO2 27.8 L VBG pO2 64 H VBG HCO3 14.7 L VBG Total CO2 15.5 L VBG O2 Saturation 87.7 H VBG Base Excess -9.5 L Medical - PN: A/P - Time Spent With Patient Total time spent is greater than 50% in coordination of care (as documented) at patient's floor/unit and/or counseling patient: Greater than 35 minutes (critical care time) (1) Septic shock Status: Acute Assessment and plan: * Septic shock-with multiple end organ dysfunction. Currently on vasopressors, improving, map at goal, improving urine output in downtrending white count. On broad antibiotic coverage. Cultures pending. * Left lower extremity cellulitis with lymphangitis-underlying diabetes. Continue empiric coverage for gram-negative, anaerobes, staph and strep. Wound care on board * Acute mental status change-much improved mentation. * Acute renal failure secondary to septic shock. Active down to 1.5. Aggressive crystalloids and continue monitoring renal function/urine output. * DM type II, basal prandial insulin * History of atrial fibrillation -rate controlled on metoprolol * Anticoagulation continue rivaroxaban * Hyperlipidemia continue statin * DNR Plan * Continue ICU care/septic shock management per guidelines * PICC line * Wean vasopressors as tolerated * CT scan in 24 hours for evaluation of drainable abscess * Pre-existing medical condition management on home meds * Continue monitor renal function * Improving prognosis Current Visit: Yes Medical - PN: Qual - VTE Deep Vein Thrombosis/Pulmonary Embolism Present on Admission: No
[2018-05-25] MEDS: DOCUSATE SODIUM 100 MG CAPSULE PO SCH ×2 (10:12→22:12)
[2018-05-25] MEDS: 0.9 % SODIUM CHLORIDE 250 ML IV SCH ×2 (10:15→22:14)
[2018-05-25] MEDS: MULTIVIT,THER IRON,CA,FA & MIN 1 TABLET PO SCH (11:14)
[2018-05-25] MEDS: METOPROLOL SUCCINATE 25 MG TAB.XL.24H PO SCH (11:15)
[2018-05-25] MEDS: sitaGLIPtin 50 MG TABLET PO SCH (11:23)
[2018-05-25] MEDS: RIVAROXABAN 15 MG TABLET PO SCH (11:24)
--- NOTE | 2018-05-25 13:48 | General Surgery Progress Note ---
Subjective Narrative: Note initiated : 05/25/18 at 1:44 pm Service Date, if different from initiated Date: [] Patient: Marcos,Asa a 88 y/o M admitted on 05/24/18 for weakness. Chief Complaint: [] Saw patient with Jessica RIVERO. He is alert and asking appropriate Qs. Back at his base line level. NSR. Tachycardia resolving. Pressors weaned off. Inflammatory changes around left leg are improving. Objective Temp Pulse Resp BP Pulse Ox 98.5 F 122 H 17 89/59 96 05/25/18 05:05 05/24/18 15:20 05/25/18 05:05 05/25/18 05:01 05/25/18 05:05 AVSS. Pressors being weaned off. Tachycardia improving. Patient is alert mentally. Asking appropriate Qs. L/E: Resolving inflammatory changes Left leg . Awaits CT scan of left leg and foot. - Additional Data Intake & Output - Last 24 hours: Intake & Output 05/23/18 05/24/18 05/25/18 05/26/18 05:59 05:59 05:59 05:59 Intake Total 7002 949 Output Total 1985 Balance 5102 949 Weight 200 lb 200 lb - Labs 05/25/18 03:50 05/25/18 03:50 Diabetes panel 05/25/18 Range/Units 03:50 Sodium 132 L (133-145) mmol/L Potassium 3.2 L (3.3-5.1) mmol/L Chloride 101 (96-108) mmol/L Carbon Dioxide 17 L (22-30) mmol/L BUN 33 H (8-23) mg/dl Creatinine 1.5 H (0.7-1.2) mg/dl Glucose 227 H (70-105) mg/dL Calcium 7.7 L (8.6-10.4) mg/dl AST 64 H (0-37) U/l ALT 45 H (0-40) U/l Alkaline Phosphatase 65 (39-117) U/L Total Protein 5.8 L (5.9-8.4) gm/dL Albumin 2.7 L (3.2-5.2) gm/dL Triglycerides 91 (<150) mg/dl Calcium panel 05/25/18 Range/Units 03:50 Calcium 7.7 L (8.6-10.4) mg/dl Phosphorus 3.2 (2.7-4.5) mg/dL Albumin 2.7 L (3.2-5.2) gm/dL Pituitary panel 05/25/18 Range/Units 03:50 Sodium 132 L (133-145) mmol/L Potassium 3.2 L (3.3-5.1) mmol/L Chloride 101 (96-108) mmol/L Carbon Dioxide 17 L (22-30) mmol/L BUN 33 H (8-23) mg/dl Creatinine 1.5 H (0.7-1.2) mg/dl Glucose 227 H (70-105) mg/dL Calcium 7.7 L (8.6-10.4) mg/dl Adrenal panel 05/25/18 Range/Units 03:50 Sodium 132 L (133-145) mmol/L Potassium 3.2 L (3.3-5.1) mmol/L Chloride 101 (96-108) mmol/L Carbon Dioxide 17 L (22-30) mmol/L BUN 33 H (8-23) mg/dl Creatinine 1.5 H (0.7-1.2) mg/dl Glucose 227 H (70-105) mg/dL Calcium 7.7 L (8.6-10.4) mg/dl Total Bilirubin 2.4 H (0.0-1.0) mg/dL AST 64 H (0-37) U/l ALT 45 H (0-40) U/l Alkaline Phosphatase 65 (39-117) U/L Total Protein 5.8 L (5.9-8.4) gm/dL Albumin 2.7 L (3.2-5.2) gm/dL Assessment and Plan (1) Sepsis Status: Acute Current Visit: Yes (2) Diabetic neuropathy Status: Chronic Current Visit: No (3) Diabetic toe ulcer Status: Chronic Current Visit: No - Time Spent With Patient Total time spent is greater than 50% in coordination of care (as documented) at patient's floor/unit and/or counseling patient: Assessment: Satisfactory progress from wound care point of view. Plan: Continue present treatment / wound care. 15 - 24 minutes
[2018-05-25] MEDS: 0.9 % SODIUM CHLORIDE 1,000 ML IV SCH (15:13)
--- NOTE | 2018-05-25 17:49 | Internal Med Progress Note ---
Medical - PN: Subj Patient information: Note initiated : 05/25/18 at 5:37 pm Service Date, if different from initiated Date: [] Patient: Marcos,Asa a 88 y/o M admitted on 05/24/18 for weakness. Chief Complaint: [] Interval history: Mr. Rodríguez is a 88 year old M known diabetic with medications including foot ulcers/neuropathy being managed the wound care clinic. Patient presents to the ER with 2 days' onset of worsening weakness inability to bear weight and pain along with redness involving left lower extremity. Patient endorses associated shaking chills and fever along with increasing malaise. Per family patient has been quite active until recently and has had a progressive decline since development of lower extremity ulcer. he lives at [facility] and receives help from his grandson Papo. He denies recent fall, trauma, sick contacts rate he denies chest pain headache but feels very weak and lethargic and was able to only answering yes and no. Initial workup was consistent with severe [place] [address], lactic acid of 4.1 and fever of 102. Patient was started on broad antibiotic coverage after cultures were drawn. Subsequently hospitalist service was consulted At the time evaluation patient is in extreme distress unable to talk experiencing rigors. Blood pressure dropped with heart rate consistently around 130. 4 L of crystalloids was rapidly infused along with initiation of pressors after multiple IV accesses were secured. Initial Perry score 16. 4/13-patient doing better. He vasopressors currently being weaned. Status post 5 L crystalloids. Map at goal. Improving urine output and renal function. White count down to 15,000. Fever defervesced. Cultures pending. CT lower extremity in 24 hours rule out drainable collection. Multiple family members at bedside. Discussed treatment plan/labs and imaging. No questions or concerns expressed by nursing staff or patient 05/26 - Constitutional Vitals: Vital Signs Temp Pulse Resp BP Pulse Ox 100.3 F H 122 H 23 H 93/64 97 05/25/18 17:01 05/24/18 15:20 05/25/18 17:01 05/25/18 17:01 05/25/18 17:01 Period Temp Pulse Resp BP Sys/Gastelum Pulse Ox Last 24 Hr 98.4 F-102.7 F 13- 68-146/47-102 91-99 Intake and Output 0405/25/18 05/25/18 05:59 13:59 21:59 Intake Total 790 949 Output Total 1190 1400 Balance -400 949 -1400 Weight 90.718 kg 90.718 kg Patient Weight 05/26/18 05:59 Weight 90.718 kg Intake & Output: Intake & Output 05/25/18 05/25/18 05/25/18 05:59 13:59 21:59 Intake Total 790 949 Output Total 1190 1400 Balance -400 949 -1400 Weight 90.718 kg 90.718 kg Intake: IV 70 949 Sodium Chloride 0.9% 250 ml @ 35 20 mls/hr IV .[id number] [facility] Rx#: [id number] Zosyn 3.375 gm In Dextrose 5% 50 100 in Water 50 ml @ 100 mls/hr IV Q6H [facility] Rx#:[id number] Vancomycin 1,500 mg In Sodium 500 Chloride 0.9% 500 ml @ 333.3 mls/hr IV DAILY [facility] Rx#: [id number] Oral 720 Output: Urine Catheter Amount 1190 1400 Other: Meal Egg salad sandwich Percent of Meal Consumed 25% Feeding Ability Assist with Tray Set Up Urine Appearance Clear Urine Color Dark Yellow Bright Yellow Urine Odor Normal Exam: General: Alert, Awake, No acute Distress Eyes/N/T: EOMI, Head/Neck: neck supple, CV: RRR, No murmurs, Pulm: Clear b/l, no wheezing/rhonchi/rales Abd: soft, nontender, +BS x4 Ext: Neuro: Alert, no focal deficits, moves all extremities, Skin: warm/dry Medical - PN: Obj Da - Labs CBC & Chem 7: 05/25/18 03:50 05/25/18 03:50 Labs: Abnormal Lab Results 05/25/18 05/25/18 05/24/18 03:50 03:50 15:51 WBC 15.0 H RBC 3.96 L Hgb 11.6 L Hct 36.0 L RDW 15.2 H Plt Count 110 L Gran % Lymph % (Auto) Gran # Lymph # (Auto) Lymphocytes % 11 L Platelet Estimate Decreased A ESR PT INR ABG Methemoglobin 0 L VBG pCO2 27.8 L VBG pO2 64 H VBG HCO3 14.7 L VBG Total CO2 15.5 L VBG O2 Saturation 87.7 H VBG Base Excess -9.5 L VBG Lactic Acid Carboxyhemoglobin 3.4 H Total Hemoglobin 13.0 L Sodium 132 L Potassium 3.2 L Chloride Carbon Dioxide 17 L Anion Gap BUN 33 H Creatinine 1.5 H Glucose 227 H Calcium 7.7 L Total Bilirubin 2.4 H AST 64 H ALT 45 H C-Reactive Protein Total Protein 5.8 L Albumin 2.7 L Globulin Albumin/Globulin Ratio 0.9 L Urine Protein Urine Glucose (UA) Urine Ketones Urine Occult Blood 05/24/18 05/24/18 05/24/18 15:51 15:51 14:00 WBC RBC Hgb Hct RDW Plt Count Gran % Lymph % (Auto) Gran # Lymph # (Auto) Lymphocytes % Platelet Estimate ESR 36 H PT INR ABG Methemoglobin VBG pCO2 VBG pO2 VBG HCO3 VBG Total CO2 VBG O2 Saturation VBG Base Excess VBG Lactic Acid Carboxyhemoglobin Total Hemoglobin Sodium Potassium Chloride Carbon Dioxide Anion Gap BUN Creatinine Glucose Calcium Total Bilirubin AST ALT C-Reactive Protein 21.7 H Total Protein Albumin Globulin Albumin/Globulin Ratio Urine Protein 30 A Urine Glucose (UA) >=500 A Urine Ketones 5/tr A Urine Occult Blood 0.03 A 05/24/18 05/24/18 05/24/18 12:28 12:28 12:28 WBC RBC Hgb Hct RDW Plt Count Gran % Lymph % (Auto) Gran # Lymph # (Auto) Lymphocytes % Platelet Estimate ESR PT 16.5 H INR 1.3 H ABG Methemoglobin VBG pCO2 VBG pO2 VBG HCO3 VBG Total CO2 VBG O2 Saturation VBG Base Excess VBG Lactic Acid 4.1 H* Carboxyhemoglobin Total Hemoglobin Sodium 131 L Potassium Chloride 94 L Carbon Dioxide 19 L Anion Gap 18.0 H BUN 37 H Creatinine 1.6 H Glucose 274 H Calcium Total Bilirubin AST ALT C-Reactive Protein Total Protein Albumin Globulin 4.0 H Albumin/Globulin Ratio Urine Protein Urine Glucose (UA) Urine Ketones Urine Occult Blood 05/24/18 12:28 WBC 20.2 H RBC Hgb Hct RDW 15.3 H Plt Count Gran % 94.7 H Lymph % (Auto) 3.6 L Gran # 19.1 H Lymph # (Auto) 0.7 L Lymphocytes % Platelet Estimate ESR PT INR ABG Methemoglobin VBG pCO2 VBG pO2 VBG HCO3 VBG Total CO2 VBG O2 Saturation VBG Base Excess VBG Lactic Acid Carboxyhemoglobin Total Hemoglobin Sodium Potassium Chloride Carbon Dioxide Anion Gap BUN Creatinine Glucose Calcium Total Bilirubin AST ALT C-Reactive Protein Total Protein Albumin Globulin Albumin/Globulin Ratio Urine Protein Urine Glucose (UA) Urine Ketones Urine Occult Blood Meds: Medications Acetaminophen (Tylenol) 650 mg PO Q4-6HP PRN PRN Reason: PAIN/FEVER > 101 Albuterol/Ipratropium (Duoneb) 3 ml NEB Q4HP PRN PRN Reason: Shortness Of Breath Dextrose (Dextrose 50%) 0 ml IV UD PRN PRN Reason: Hypoglycemia Diagnostic Test (Pha) (Accu-Chek) 1 each FS ACHS [facility] Last Admin: 05/25/18 11:24 Dose: 1 each Documented by: Docusate Sodium (Colace) 100 mg PO BID [facility] Last Admin: 05/25/18 10:12 Dose: Not Given Documented by: Dutasteride (Avodart) 0.5 mg PO HS [facility] Last Admin: 05/24/18 21:56 Dose: 0.5 mg Documented by: Glucose (Insta-Glucose) 15 gm PO PRN PRN PRN Reason: Hypoglycemia Heparin Sodium (Porcine) (Heparin Flush) 2 ml IV Q12 [facility] Magnesium Sulfate (Magnesium Sulfate) 2 gm in 50 mls @ 50 mls/hr IV UD PRN PRN Reason: MG = or < 1.7 Norepinephrine Bitartrate 16 (mg/ Sodium Chloride) 250 mls @ 9.38 mls/hr IV Q24HP PRN; Protocol PRN Reason: Hypotension Sodium Chloride (Sodium Chloride 0.9%) 1,000 mls @ 50 mls/hr IV .Q20H [facility] Stop: 05/27/18 03:34 Last Admin: 05/25/18 15:13 Dose: 50 mls/hr Documented by: Sodium Chloride (Sodium Chloride 0.9%) 1,000 mls @ 0 mls/hr IV BOLUS [facility] Last Admin: 05/24/18 21:48 Dose: Not Given Documented by: Sodium Chloride (Sodium Chloride 0.9%) 250 mls @ 20 mls/hr IV .[id number] [facility] Last Infusion: 05/25/18 12:00 Dose: 0 mls/hr Documented by: Acetaminophen (Ofirmev) 1,000 mg in 100 mls @ 200 mls/hr IV Q6HP PRN PRN Reason: PAIN/FEVER > 101 Piperacillin Sod/Tazobactam (Sod 3.375 gm/ Dextrose) 50 mls @ 100 mls/hr IV Q6H [facility]; Protocol Last Infusion: 05/25/18 11:45 Dose: Infused Documented by: Vancomycin HCl 1,500 mg/ (Sodium Chloride) 500 mls @ 333.3 mls/hr IV DAILY [facility] Last Infusion: 05/25/18 12:00 Dose: Infused Documented by: Insulin Glargine (Lantus) 10 unit SQ DAILY [facility] Last Admin: 05/25/18 08:48 Dose: 10 unit Documented by: Insulin Human Lispro (Humalog) 0 unit SQ ACHS [facility]; Protocol Last Admin: 05/25/18 11:41 Dose: 4 units Documented by: Iron Carb/Multivit/Chairman & Ceo/Folic Acid (Multivitamin W/Minerals) 1 tab PO DAILY [facility] Last Admin: 05/25/18 11:14 Dose: 1 tab Documented by: Metoprolol Succinate (Toprol Xl) 25 mg PO DAILY [facility] Last Admin: 05/25/18 11:15 Dose: 25 mg Documented by: Ondansetron HCl (Zofran) 4 mg IV Q4-6HP PRN PRN Reason: Nausea And Vomiting Potassium Chloride (Klor-Con) 40 meq PO DAILYP PRN PRN Reason: K+ < 3.5 Repaglinide (Prandin) 0.5 mg PO TIDAC [facility] Last Admin: 05/25/18 11:12 Dose: 0.5 mg Documented by: [facility] Admin: 05/25/18 11:24 Dose: 15 mg Documented by: Senna/Docusate Sodium (Senna Plus Tablet) 1 tab PO [facility] Last Admin: 05/24/18 21:55 Dose: Not Given Documented by: Simvastatin (Zocor) 20 mg PO [facility] Last Admin: 05/24/18 21:57 Dose: 20 mg Documented by: Sitagliptin Phosphate (Januvia) 50 mg PO DAILY [facility] Last Admin: 05/25/18 11:23 Dose: 50 mg Documented by: Sodium Chloride (Saline Flush) 10 ml IV Q8 [facility] Last Admin: 05/25/18 12:11 Dose: 10 ml Documented by: Sodium Chloride (Saline Flush) 10 ml IV UD PRN PRN Reason: FLUSH Sodium Chloride (Saline Flush) 10 ml IV Q12 [facility] Tamsulosin HCl (Flomax) 0.4 mg PO HS [facility] Last Admin: 05/24/18 21:53 Dose: 0.4 mg Documented by: Vancomycin HCl (Vancomycin Per Pharmacy) 1 order IV UD [facility]; Protocol - ABG Interpretation ABG results: 05/24/18 15:51 ABG Methemoglobin 0 L VBG pH 7.34 VBG pCO2 27.8 L VBG pO2 64 H VBG HCO3 14.7 L VBG Total CO2 15.5 L VBG O2 Saturation 87.7 H VBG Base Excess -9.5 L Medical - PN: A/P - Time Spent With Patient Total time spent is greater than 50% in coordination of care (as documented) at patient's floor/unit and/or counseling patient: - Narrative A/P Narrative: A: *Septic shock with multiple end-organ dysfunction: -Currently on vasopressors, improving, map at goal, improving urine output in downtrending white count -Lactic acidosis resolved *LLE cellulitis w/lymphangitis, underlying diabetes: -CT imaging and evaluation by surgeon, not likely nec fasc. And lab findings slowly improving. -Likely toxin producing strep, clinda added -Acute mental status change: 2/2 above, much improved mentation. -DELIA on ?CKD (unknown baseline, ?CKD): 2/2 above -DM type II: -Afib, chronic: on BB and xarelto -hyponatremia: Plan: -IVF -Wean vasopressors as tolerated -Continue ICU care/septic shock management per guidelines -vanc/zosyn, clinda added for antitoxin effect -Cultures pending -Dr. Allred following -CT scan in 24 hours for evaluation of drainable abscess -cont home BB -basal insulin and SSI -ppx: Rivaroxaban DNR Medical - PN: Qual - VTE Deep Vein Thrombosis/Pulmonary Embolism Present on Admission: No
[2018-05-25] MEDS ORDERED: NOREPINEPHRINE BITARTRATE 16 MG in 0.9 % SODIUM CHLORIDE 234 ML IV PRN (18:00)
[2018-05-25] MEDS ORDERED: HYDROcodone/APAP 5/325MG TABLET PO PRN (20:51)
[2018-05-25 21:09] LABS: C-Reactive Protein 18.7 mg/dl (0.0-0.8)
--- NOTE | 2018-05-25 21:48 | General Surgery Consult Note ---
History of Present Illness Patient information: Note initiated : 05/25/18 at 9:45 pm Service Date, if different from initiated Date: [] Patient: Marcos,Asa a 88 y/o M admitted on 05/24/18 for weakness. Chief Complaint: [] This is a brief consult. 88-year-old gentleman that was admitted 2 days ago presenting with increasing pain, increase in symptoms with left lower extremity cellulitis. He clinically was septic, required IV resuscitation as well as intravenous pressors. . He was started on intravenous Zosyn and vancomycin. Over the last 48 hours. He has clinically improved. He is now off the intravenous pressors. He's been afebrile the last 48 hours. His white blood count is down. I was asked to seen tonight because of concern with necrotizing fasciitis. According to the nursing staff, who is cared for in previously, the redness on his left lower extremity has extended. The patient is diabetic, is insensate in his feet. CT scan was obtained, final reading is pending. Consult date: 05/25/18 Reason for consult: other (concerned with possible necrotizing fasciitis) Past History Past medical history: Medical History (Last Updated 05/25/18 @ 07:07 by Jason Dye DO) History of sepsis (Chronic) Hypertension, essential (Chronic) Atrial fibrillation (Chronic) Chronic anticoagulation (Chronic) Diabetes mellitus type 2, uncontrolled, with complications (Chronic) Diabetic toe ulcer (Chronic) Diabetic neuropathy (Chronic) COPD (chronic obstructive pulmonary disease) (Chronic) Hyperlipidemia (Chronic) Past social history: Social History No Social History Section defined Medications and Allergies Home Medications Medication Instructions Recorded Confirmed Type Dutasteride [Avodart] 0.5 mg PO HS 05/24/18 05/24/18 History Empagliflozin [Jardiance] 25 mg PO DAILY 05/24/18 05/24/18 History Hydrochlorothiazide [Oretic] 25 mg PO DAILY 05/24/18 05/24/18 History Insulin Degludec [Tresiba 10 unit SQ DAILY 05/24/18 05/24/18 History Flextouch U-200] Lovastatin 40 mg PO QHS 05/24/18 05/24/18 History Metoprolol Succinate [Toprol Xl] 25 mg PO DAILY 05/24/18 05/24/18 History Repaglinide [Prandin] 1 mg PO TID 05/24/18 05/24/18 History Rivaroxaban [Xarelto] 20 mg PO DAILY 05/24/18 05/24/18 History Tamsulosin [Flomax] 0.4 mg PO HS 05/24/18 05/24/18 History metFORMIN HCL [Metformin HCl] 1,000 mg PO DAILY 05/24/18 05/24/18 History Allergies Allergy/AdvReac Type Severity Reaction Status Date / Time No Known Drug Allergies Allergy Verified 12/09/16 11:09 Exam Temp Pulse Resp BP Pulse Ox 99.6 F H 122 H 18 91/63 98 05/25/18 20:36 05/24/18 15:20 05/25/18 18:01 05/25/18 18:01 05/25/18 18:01 - General physical appearance no distress, no pain, obese, other (very challenging elderly man who is alert, bright & quite communicative & clear) - Musculoskeletal Present: other (exam limited to left leg. he has a dressing on a foot diabetic ulcer, which I did not remove. There is no cellulitis on his foot. There is erythema starting about the level of the malleoli extending circumferentially almost up to his tibial tuberosity. It is violaceous in color in some places. There is one bulla anteriorly, which according the nursing staff has been there since he was admitted. There is no crepitus. There is no significant edema. It's relatively nontender. Exam above his knee is essentially normal with no tenderness, no crepitus, no fullness.) Results - Labs 05/25/18 03:50 05/25/18 03:50 Abnormal lab results 05/25/18 05/25/18 05/25/18 Range/Units 03:50 03:50 20:22 WBC 15.0 H (4.5-11.0) K/mcL RBC 3.96 L (4.50-5.90) M/mcL Hgb 11.6 L (13.5-16.5) g/dL Hct 36.0 L (41.0-55.0) % RDW 15.2 H (11.5-14.5) % Plt Count 110 L (140-440) K/mcL Lymphocytes % 11 L (15-49) % Platelet Estimate Decreased A (NORMAL) Sodium 132 L (133-145) mmol/L Potassium 3.2 L (3.3-5.1) mmol/L Carbon Dioxide 17 L (22-30) mmol/L BUN 33 H (8-23) mg/dl Creatinine 1.5 H (0.7-1.2) mg/dl Glucose 227 H (70-105) mg/dL Calcium 7.7 L (8.6-10.4) mg/dl Total Bilirubin 2.4 H (0.0-1.0) mg/dL AST 64 H (0-37) U/l ALT 45 H (0-40) U/l Total Creatine Kinase (24-195) IU/L C-Reactive Protein 18.7 H (0.0-0.8) mg/dl Total Protein 5.8 L (5.9-8.4) gm/dL Albumin 2.7 L (3.2-5.2) gm/dL Albumin/Globulin Ratio 0.9 L (1.0-2.3) 05/25/18 Range/Units 20:22 WBC (4.5-11.0) K/mcL RBC (4.50-5.90) M/mcL Hgb (13.5-16.5) g/dL Hct (41.0-55.0) % RDW (11.5-14.5) % Plt Count (140-440) K/mcL Lymphocytes % (15-49) % Platelet Estimate (NORMAL) Sodium (133-145) mmol/L Potassium (3.3-5.1) mmol/L Carbon Dioxide (22-30) mmol/L BUN (8-23) mg/dl Creatinine (0.7-1.2) mg/dl Glucose (70-105) mg/dL Calcium (8.6-10.4) mg/dl Total Bilirubin (0.0-1.0) mg/dL AST (0-37) U/l ALT (0-40) U/l Total Creatine Kinase 358 H (24-195) IU/L C-Reactive Protein (0.0-0.8) mg/dl Total Protein (5.9-8.4) gm/dL Albumin (3.2-5.2) gm/dL Albumin/Globulin Ratio (1.0-2.3) Diabetes panel 05/25/18 Range/Units 03:50 Sodium 132 L (133-145) mmol/L Potassium 3.2 L (3.3-5.1) mmol/L Chloride 101 (96-108) mmol/L Carbon Dioxide 17 L (22-30) mmol/L BUN 33 H (8-23) mg/dl Creatinine 1.5 H (0.7-1.2) mg/dl Glucose 227 H (70-105) mg/dL Calcium 7.7 L (8.6-10.4) mg/dl AST 64 H (0-37) U/l ALT 45 H (0-40) U/l Alkaline Phosphatase 65 (39-117) U/L Total Protein 5.8 L (5.9-8.4) gm/dL Albumin 2.7 L (3.2-5.2) gm/dL Triglycerides 91 (<150) mg/dl Calcium panel 05/25/18 Range/Units 03:50 Calcium 7.7 L (8.6-10.4) mg/dl Phosphorus 3.2 (2.7-4.5) mg/dL Albumin 2.7 L (3.2-5.2) gm/dL Pituitary panel 05/25/18 Range/Units 03:50 Sodium 132 L (133-145) mmol/L Potassium 3.2 L (3.3-5.1) mmol/L Chloride 101 (96-108) mmol/L Carbon Dioxide 17 L (22-30) mmol/L BUN 33 H (8-23) mg/dl Creatinine 1.5 H (0.7-1.2) mg/dl Glucose 227 H (70-105) mg/dL Calcium 7.7 L (8.6-10.4) mg/dl Adrenal panel 05/25/18 Range/Units 03:50 Sodium 132 L (133-145) mmol/L Potassium 3.2 L (3.3-5.1) mmol/L Chloride 101 (96-108) mmol/L Carbon Dioxide 17 L (22-30) mmol/L BUN 33 H (8-23) mg/dl Creatinine 1.5 H (0.7-1.2) mg/dl Glucose 227 H (70-105) mg/dL Calcium 7.7 L (8.6-10.4) mg/dl Total Bilirubin 2.4 H (0.0-1.0) mg/dL AST 64 H (0-37) U/l ALT 45 H (0-40) U/l Alkaline Phosphatase 65 (39-117) U/L Total Protein 5.8 L (5.9-8.4) gm/dL Albumin 2.7 L (3.2-5.2) gm/dL All other labs normal. - Imaging Additional studies: CT films of his entire left lower extremity were reviewed. Please note the official report is pending. Careful exam on the lung windows does not show any visible air to my review. All the tissue planes seen very clearly delineated with good heterogeneity of all the tissue layers. I don't see any findings consistent with any fluid collections or anything in my opinion, that is consistent with necrotizing fasciitis. Assessment and Plan (1) Cellulitis of leg, left Status: Acute (2) Diabetic toe ulcer My suspicion that he has necrotizing fasciitis is low to moderate. Clinically overall he is improving. His vital signs are stable. He is off pressors. CT scan does not demonstrate any air or tissue plane loss, or fluid collections. Although the exam shows significant cellulitis with perhaps some extension, there is no serious pain out of proportion to what I see. There is no other physical findings concerning for necrotizing fasciitis. With his overall improving clinical situation, nothing concerning on the CT scan, at this point I think continued intravenous antibiotics are in order. I spoken with Dr. Humphreys who has already planned on adding Clindamycin which I concur with. He was examined by another general surgeon each of the last two days with no concerns based on physical exam raised either. I'll see him again as needed. 30 minutes spent in review of records, data and exam and discussion. Status: Chronic Priority: Medium Qualifiers: Diabetes mellitus type: type 2 Non-pressure ulcer stage: with fat layer exposed (3) History of sepsis Status: Chronic
[2018-05-25] MEDS: DUTASTERIDE 0.5 MG CAPSULE PO SCH (22:09)
[2018-05-25] MEDS: TAMSULOSIN 0.4 MG CAPSULE PO SCH (22:09)
[2018-05-25] MEDS: SIMVASTATIN 20 MG TABLET PO SCH (22:10)
[2018-05-25] MEDS ORDERED: CLINDAMYCIN 600 MG/4 ML VIAL ONE (22:13)
[2018-05-25] MEDS: SENNOSIDES/DOCUSATE SODIUM 1 TAB TABLET PO SCH (22:14)
[2018-05-26] MEDS: PIPERACILLIN SODIUM/TAZOBACTAM 3.375 GM in DEXTROSE 5% IN WATER 50 ML IV SCH ×6 (01:41→23:35)
[2018-05-26] MEDS: CLINDAMYCIN 900 MG in DEXTROSE 5% IN WATER 50 ML IV SCH ×4 (01:45→22:23)
[2018-05-26] MEDS: 0.9 % SODIUM CHLORIDE 10 ML SYRINGE IV SCH ×5 (05:29→22:09)
[2018-05-26 06:20] LABS: Mean Corpuscular HGB Conc 32.7 g/dL (31.0-36.0); Platelet Count 99 K/mcL (140-440); RBC 3.53 M/mcL (4.50-5.90); Red Cell Distribution Width 15.6 % (11.5-14.5)
[2018-05-26 06:39] LABS: ALT/SGPT 45 U/l (0-40); Albumin 2.7 gm/dL (3.2-5.2); Alkaline Phosphatase 58 U/L (39-117); Bilirubin,Direct < 0.2 mg/dL (0.0-0.3); Blood Urea Nitrogen 30 mg/dl (8-23); Gamma Glutamyl Transpeptidase 18 U/L (8-61); Uric Acid 3.9 mg/dL (2.5-8.0)
[2018-05-26 07:42] LABS: Anisocytosis FEW (NONE SEEN); Eosinophils % (Manual) 1 % (0-7); Lymphocytes % 8 % (15-49); Monocytes % (Manual) 5 % (1-12); Platelet Estimate DECREASED (NORMAL); RBC Morphology ABNORM (NORMAL); Segmented Neutrophils % 86 % (38-78)
--- NOTE | 2018-05-26 07:53 | Internal Med Progress Note ---
Medical - PN: Subj Patient information: Note initiated : 05/26/18 at 7:45 am Service Date, if different from initiated Date: [] Patient: Marcos,Asa a 88 y/o M admitted on 05/24/18 for weakness. Chief Complaint: [] Interval history: Mr. Rodríguez is a 88 year old M known diabetic with medications including foot ulcers/neuropathy being managed the wound care clinic. Patient presents to the ER with 2 days' onset of worsening weakness inability to bear weight and pain along with redness involving left lower extremity. Patient endorses associated shaking chills and fever along with increasing malaise. Per family patient has been quite active until recently and has had a progressive decline since development of lower extremity ulcer. he lives at [facility] and receives help from his grandson Papo. He denies recent fall, trauma, sick contacts rate he denies chest pain headache but feels very weak and lethargic and was able to only answering yes and no. Initial workup was consistent with severe [place] [address], lactic acid of 4.1 and fever of 102. Patient was started on broad antibiotic coverage after cultures were drawn. Subsequently hospitalist service was consulted At the time evaluation patient is in extreme distress unable to talk experiencing rigors. Blood pressure dropped with heart rate consistently around 130. 4 L of crystalloids was rapidly infused along with initiation of pressors after multiple IV accesses were secured. Initial [place] score 16. 4/13-patient doing better. He vasopressors currently being weaned. Status post 5 L crystalloids. Map at goal. Improving urine output and renal function. White count down to 15,000. Fever defervesced. Cultures pending. CT lower extremity in 24 hours rule out drainable collection. Multiple family members at bedside. Discussed treatment plan/labs and imaging. No questions or concerns expressed by nursing staff or patient 05/26 Patient had no overnight events. Little cantankerous this morning. The redness down into the foot seems improved today. And his pain seems to be better. Leukocytosis resolved. Lactate good. CRP improving. No new complaints other than little bit of a cough with sinus congestion. No chest pain or shortness of breath Review of Systems: denies headache/fever/chills/nausea/vomiting/chest or abdominal pain/dyspnea/diarrhea. Otherwise see above. - Constitutional Vitals: Vital Signs Temp Pulse Resp BP Pulse Ox 97.3 F 122 H 13 113/61 97 05/26/18 06:22 05/24/18 15:20 05/26/18 06:22 05/26/18 06:01 05/26/18 06:22 Period Temp Pulse Resp BP Sys/Gastelum Pulse Ox Last 24 Hr 96.7 F-100.4 F 11-26 86-124/50-73 91-99 Intake and Output 05/25/18 05/26/18 05/26/18 21:59 05:59 13:59 Intake Total 1050 200 750 Output Total 1505 440 120 Balance -455 -240 630 Weight 92.533 kg Intake & Output: Intake & Output 05/25/18 05/26/18 05/26/18 21:59 05:59 13:59 Intake Total 1050 200 750 Output Total 1505 440 120 Balance -455 -240 630 Weight 92.533 kg Intake: IV 1050 200 Zosyn 3.375 gm In Dextrose 5% 100 in Water 50 ml @ 100 mls/hr IV Q6H [facility] Rx#:[id number] Oral 750 Output: Urine Catheter Amount 1505 440 120 Other: Urine Appearance Clear Urine Color Bright Yellow Dark Yellow Urine Odor Normal Exam: General: Alert, Awake, No acute Distress Eyes/N/T: EOMI, Head/Neck: neck supple, CV: irreg, No murmurs, Pulm: Clear b/l, no wheezing/rhonchi/rales Abd: soft, nontender, +BS x4 Ext: venous stasis changes b/l, swelling left leg with erythema (improving at the foot) and TTP Neuro: Alert, no focal deficits, moves all extremities, Skin: warm/dry Medical - PN: Obj Da - Labs CBC & Chem 7: 05/26/18 03:39 05/26/18 03:39 Labs: Abnormal Lab Results 05/26/18 05/26/18 05/26/18 03:39 03:39 03:39 WBC RBC 3.53 L Hgb 10.4 L Hct 31.8 L RDW 15.6 H Plt Count 99 L Gran % Lymph % (Auto) Gran # Lymph # (Auto) Seg Neutrophils % 86 H Lymphocytes % 8 L Platelet Estimate Decreased A RBC Morphology Abnorm A Anisocytosis Few A ESR PT INR ABG Methemoglobin VBG pCO2 VBG pO2 VBG HCO3 VBG Total CO2 VBG O2 Saturation VBG Base Excess VBG Lactic Acid Carboxyhemoglobin Total Hemoglobin Sodium Potassium Chloride Carbon Dioxide 19 L Anion Gap BUN 30 H Creatinine 1.4 H Glucose 133 H Calcium 7.5 L Phosphorus 2.0 L Total Bilirubin AST 50 H ALT 45 H Total Creatine Kinase C-Reactive Protein 15.1 H Total Protein 5.5 L Albumin 2.7 L Globulin Albumin/Globulin Ratio Urine Protein Urine Glucose (UA) Urine Ketones Urine Occult Blood 05/25/18 05/25/18 05/25/18 20:22 20:22 03:50 WBC RBC Hgb Hct RDW Plt Count Gran % Lymph % (Auto) Gran # Lymph # (Auto) Seg Neutrophils % Lymphocytes % Platelet Estimate RBC Morphology Anisocytosis ESR PT INR ABG Methemoglobin VBG pCO2 VBG pO2 VBG HCO3 VBG Total CO2 VBG O2 Saturation VBG Base Excess VBG Lactic Acid Carboxyhemoglobin Total Hemoglobin Sodium 132 L Potassium 3.2 L Chloride Carbon Dioxide 17 L Anion Gap BUN 33 H Creatinine 1.5 H Glucose 227 H Calcium 7.7 L Phosphorus Total Bilirubin 2.4 H AST 64 H ALT 45 H Total Creatine Kinase 358 H C-Reactive Protein 18.7 H Total Protein 5.8 L Albumin 2.7 L Globulin Albumin/Globulin Ratio 0.9 L Urine Protein Urine Glucose (UA) Urine Ketones Urine Occult Blood 05/25/18 05/24/18 05/24/18 03:50 15:51 15:51 WBC 15.0 H RBC 3.96 L Hgb 11.6 L Hct 36.0 L RDW 15.2 H Plt Count 110 L Gran % Lymph % (Auto) Gran # Lymph # (Auto) Seg Neutrophils % Lymphocytes % 11 L Platelet Estimate Decreased A RBC Morphology Anisocytosis ESR PT INR ABG Methemoglobin 0 L VBG pCO2 27.8 L VBG pO2 64 H VBG HCO3 14.7 L VBG Total CO2 15.5 L VBG O2 Saturation 87.7 H VBG Base Excess -9.5 L VBG Lactic Acid Carboxyhemoglobin 3.4 H Total Hemoglobin 13.0 L Sodium Potassium Chloride Carbon Dioxide Anion Gap BUN Creatinine Glucose Calcium Phosphorus Total Bilirubin AST ALT Total Creatine Kinase C-Reactive Protein 21.7 H Total Protein Albumin Globulin Albumin/Globulin Ratio Urine Protein Urine Glucose (UA) Urine Ketones Urine Occult Blood 05/24/18 05/24/18 05/24/18 15:51 14:00 12:28 WBC RBC Hgb Hct RDW Plt Count Gran % Lymph % (Auto) Gran # Lymph # (Auto) Seg Neutrophils % Lymphocytes % Platelet Estimate RBC Morphology Anisocytosis ESR 36 H PT 16.5 H INR 1.3 H ABG Methemoglobin VBG pCO2 VBG pO2 VBG HCO3 VBG Total CO2 VBG O2 Saturation VBG Base Excess VBG Lactic Acid Carboxyhemoglobin Total Hemoglobin Sodium Potassium Chloride Carbon Dioxide Anion Gap BUN Creatinine Glucose Calcium Phosphorus Total Bilirubin AST ALT Total Creatine Kinase C-Reactive Protein Total Protein Albumin Globulin Albumin/Globulin Ratio Urine Protein 30 A Urine Glucose (UA) >=500 A Urine Ketones 5/tr A Urine Occult Blood 0.03 A 05/24/18 05/24/18 05/24/18 12:28 12:28 12:28 WBC 20.2 H RBC Hgb Hct RDW 15.3 H Plt Count Gran % 94.7 H Lymph % (Auto) 3.6 L Gran # 19.1 H Lymph # (Auto) 0.7 L Seg Neutrophils % Lymphocytes % Platelet Estimate RBC Morphology Anisocytosis ESR PT INR ABG Methemoglobin VBG pCO2 VBG pO2 VBG HCO3 VBG Total CO2 VBG O2 Saturation VBG Base Excess VBG Lactic Acid 4.1 H* Carboxyhemoglobin Total Hemoglobin Sodium 131 L Potassium Chloride 94 L Carbon Dioxide 19 L Anion Gap 18.0 H BUN 37 H Creatinine 1.6 H Glucose 274 H Calcium Phosphorus Total Bilirubin AST ALT Total Creatine Kinase C-Reactive Protein Total Protein Albumin Globulin 4.0 H Albumin/Globulin Ratio Urine Protein Urine Glucose (UA) Urine Ketones Urine Occult Blood Meds: Medications Acetaminophen (Tylenol) 650 mg PO Q4-6HP PRN PRN Reason: PAIN/FEVER > 101 Hydrocodone Bitart/Acetaminophen ([place] 5/325mg) 1 tab PO Q4-6HP PRN PRN Reason: PAIN LEVEL 3-6 Albuterol/Ipratropium (Duoneb) 3 ml NEB Q4HP PRN PRN Reason: Shortness Of Breath Dextrose (Dextrose 50%) 0 ml IV UD PRN PRN Reason: Hypoglycemia Diagnostic Test (Pha) (Accu-Chek) 1 each FS ACHS [facility] Last Admin: 05/25/18 22:11 Dose: 1 each Documented by: Docusate Sodium (Colace) 100 mg PO BID [facility] Last Admin: 05/25/18 22:12 Dose: Not Given Documented by: Dutasteride (Avodart) 0.5 mg PO HS [facility] Last Admin: 05/25/18 22:09 Dose: 0.5 mg Documented by: Glucose (Insta-Glucose) 15 gm PO PRN PRN PRN Reason: Hypoglycemia Heparin Sodium (Porcine) (Heparin Flush) 2 ml IV Q12 [facility] Last Admin: 05/25/18 22:12 Dose: Not Given Documented by: Magnesium Sulfate (Magnesium Sulfate) 2 gm in 50 mls @ 50 mls/hr IV UD PRN PRN Reason: MG = or < 1.7 Last Infusion: 05/25/18 18:38 Dose: Infused Documented by: Norepinephrine Bitartrate 16 (mg/ Sodium Chloride) 250 mls @ 9.38 mls/hr IV Q24 [facility] PRN; Protocol PRN Reason: Hypotension Sodium Chloride (Sodium Chloride 0.9%) 1,000 mls @ 50 mls/hr IV .Q20H [facility] Stop: 05/27/18 03:34 Last Admin: 05/25/18 15:13 Dose: 50 mls/hr Documented by: Sodium Chloride (Sodium Chloride 0.9%) 250 mls @ 20 mls/hr IV .[id number] [facility] Last Admin: 05/25/18 22:14 Dose: Not Given Documented by: Acetaminophen (Ofirmev) 1,000 mg in 100 mls @ 200 mls/hr IV Q6HP PRN PRN Reason: PAIN/FEVER > 101 Last Infusion: 05/26/18 03:13 Dose: Infused Documented by: Piperacillin Sod/Tazobactam (Sod 3.375 gm/ Dextrose) 50 mls @ 100 mls/hr IV Q6H [facility]; Protocol Last Infusion: 05/26/18 03:11 Dose: Infused Documented by: Vancomycin HCl 1,500 mg/ (Sodium Chloride) 500 mls @ 333.3 mls/hr IV DAILY [facility] Last Infusion: 05/25/18 12:00 Dose: Infused Documented by: Clindamycin Phosphate 900 mg/ (Dextrose) 56 mls @ 100 mls/hr IV Q8H [facility]; Protocol Last Admin: 05/26/18 01:45 Dose: Not Given Documented by: Insulin Glargine (Lantus) 10 unit SQ DAILY [facility] Last Admin: 05/25/18 08:48 Dose: 10 unit Documented by: Insulin Human Lispro (Humalog) [address] [facility]; Protocol Last Admin: 05/25/18 22:13 Dose: Not Given Documented by: Iron Carb/Multivit/Magnet/Folic Acid (Multivitamin W/Minerals) 1 tab PO DAILY [facility] Last Admin: 05/25/18 11:14 Dose: 1 tab Documented by: Metoprolol Succinate (Toprol Xl) 25 mg PO DAILY [facility] Last Admin: 05/25/18 11:15 Dose: 25 mg Documented by: Morphine Sulfate (Morphine) 1 - 2 mg IV Q3HP PRN PRN Reason: PAIN LEVEL > 6 Last Admin: 05/25/18 22:10 Dose: 1 mg Documented by: Nicotine (Nicoderm) 21 mg TOPICAL DAILY@1000 [facility] Ondansetron HCl (Zofran) 4 mg IV Q4-6HP PRN PRN Reason: Nausea And Vomiting Potassium Chloride (Klor-Con) 40 meq PO DAILYP PRN PRN Reason: K+ < 3.5 Last Admin: 05/25/18 17:38 Dose: 40 meq Documented by: Repaglinide (Prandin) 0.5 mg PO TIDAC [facility] Last Admin: 05/25/18 18:32 Dose: 0.5 mg Documented by: Rivaroxaban (Xarelto) 15 mg PO QACOX [facility] Last Admin: 05/25/18 11:24 Dose: 15 mg Documented by: Senna/Docusate Sodium (Senna Plus Tablet) 1 tab PO [facility] Last Admin: 05/25/18 22:14 Dose: Not Given Documented by: Simvastatin (Zocor) 20 mg PO [facility] Last Admin: 05/25/18 22:10 Dose: 20 mg Documented by: Sitagliptin Phosphate (Januvia) 50 mg PO DAILY [facility] Last Admin: 05/25/18 11:23 Dose: 50 mg Documented by: Sodium Chloride (Saline Flush) 10 ml IV Q8 [facility] Last Admin: 05/26/18 05:29 Dose: 10 ml Documented by: Sodium Chloride (Saline Flush) 10 ml IV UD PRN PRN Reason: FLUSH Sodium Chloride (Saline Flush) 10 ml IV Q12 [facility] Last Admin: 05/25/18 22:14 Dose: Not Given Documented by: Tamsulosin HCl (Flomax) 0.4 mg PO [facility] Last Admin: 05/25/18 22:09 Dose: 0.4 mg Documented by: Vancomycin HCl (Vancomycin Per Pharmacy) 1 order IV UD [facility]; Protocol - ABG Interpretation ABG results: 05/24/18 15:51 ABG Methemoglobin 0 L VBG pH 7.34 VBG pCO2 27.8 L VBG pO2 64 H VBG HCO3 14.7 L VBG Total CO2 15.5 L VBG O2 Saturation 87.7 H VBG Base Excess -9.5 L Medical - PN: A/P - Time Spent With Patient Total time spent is greater than 50% in coordination of care (as documented) at patient's floor/unit and/or counseling patient: - Narrative A/P Narrative: A: *Septic shock with multiple end-organ dysfunction: -off vasopressors last evening, leukocytosis resolved -Lactic acidosis resolved *LLE cellulitis w/lymphangitis, underlying diabetes: -CT imaging and evaluation by surgeon, not likely nec fasc. And lab findings trending in right direction -Likely toxin producing strep, clinda added -CRP improving -Acute mental status change: 2/2 above, much improved mentation. -DELIA on ?CKD (unknown baseline, ?CKD): 2/2 above -1.4<1.6 -DM type II: -Afib, chronic: on BB and xarelto -hyponatremia: Improved Plan: -IVF stop -Continue ICU care/septic shock management per guidelines -vanc/zosyn, clinda added for antitoxin effect -Cultures pending -Dr. Yoon following -MRI ankle given question of osteo lateral malleolus -Evaluated by Gen Surg -cont home BB -basal insulin and SSI -ppx: Rivaroxaban DNR Medical - PN: Qual - VTE Deep Vein Thrombosis/Pulmonary Embolism Present on Admission: No
[2018-05-26] MEDS: DOCUSATE SODIUM 100 MG CAPSULE PO SCH ×2 (08:30→22:08)
[2018-05-26] MEDS: REPAGLINIDE 1 MG TABLET PO SCH ×3 (08:30→17:46)
[2018-05-26] MEDS: 0.9 % SODIUM CHLORIDE 250 ML IV SCH ×2 (08:31→17:11)
[2018-05-26] MEDS: INSULIN LISPRO 1 UNIT/0.01 ML UNIT SQ SCH ×4 (08:35→22:07)
[2018-05-26] MEDS: METOPROLOL SUCCINATE 25 MG TAB.XL.24H PO SCH (08:40)
[2018-05-26] MEDS: MULTIVIT,THER IRON,CA,FA & MIN 1 TABLET PO SCH (08:40)
[2018-05-26] MEDS: INSULIN GLARGINE, HUMAN 1 UNIT/0.01 ML SQ SCH (08:41)
--- NOTE | 2018-05-26 08:44 | Cat Scan Report ---
History: Left lower leg and foot abscess TECHNIQUE: The left lower leg was imaged without contrast from just above the knee through the foot. Sagittal and coronal reformats were created. The radiation exposure was limited using dose reduction technology. FINDINGS: Patient has a moderate size suprapatellar joint effusion. There has moderate severe osteoarthritis throughout the knee with the greatest degeneration in the medial joint compartment. There is significant flattening and irregularity of the weightbearing portion lateral femoral condyle. A well-defined subcortical cyst is present beneath the lateral femoral epicondyle. The overlying cortex is intact. A 9 mm calcified intra-articular loose body is present in the medial aspect of the suprapatellar bursa. No fracture or dislocation are present within the lower leg, foot or ankle Small cortical erosion is present along the anterior border of the distal fibula at the level of the lateral malleolus. The defect measures approximately 3 x 4 x 5 mm in size. There is subtle soft tissue swelling anterior to the erosion in the distal fibula. The proximal fibula is normal. Except for the arthritis involving the tibial plateaus, the remainder of the tibia is normal. Ankle joint space is normal in width and alignment. There is no joint effusion. Patient has moderate cellulitis/edema throughout the left lower leg extending down into the foot. Small Forrest's cyst is present in the popliteal fossa. It measures approximately 2 cm. No abscess is identified within the leg or foot. Patient has arthritis in the foot. There is moderate involvement between the intermediate cuneiform and second metatarsal and there is also arthritis at the first metatarsal phalangeal joint. IMPRESSION: Small cortical erosion along the anterior border of the lateral malleolus with relatively minor overlying soft tissue swelling. This could be focal osteomyelitis and should be correlated with the patient's symptoms. Diffuse cellulitis/edema throughout the leg from below the knee down to the foot Moderately severe osteoarthritis in the knee and mild arthritis in the foot Small Forrest's cyst No evidence of an abscess Interpreted and Authenticated by: Richard Bush 05/26/18
[2018-05-26] MEDS: sitaGLIPtin 50 MG TABLET PO SCH (08:46)
[2018-05-26] MEDS: RIVAROXABAN 15 MG TABLET PO SCH (08:47)
[2018-05-26] MEDS: VANCOMYCIN 1,500 MG in 0.9 % SODIUM CHLORIDE 500 ML IV SCH (09:00)
[2018-05-26] MEDS ORDERED: LACTOBACILLUS 1 CAPSULE PO SCH (09:00)
[2018-05-26] MEDS ORDERED: NICOTINE 21 MG PATCH TOPICAL SCH (10:00)
[2018-05-26] MEDS: 0.9 % SODIUM CHLORIDE 1,000 ML IV SCH (12:39)
[2018-05-26] MEDS ORDERED: NOREPINEPHRINE BITARTRATE 16 MG in 0.9 % SODIUM CHLORIDE 234 ML IV PRN (16:03)
[2018-05-26] MEDS ORDERED: ACETAMINOPHEN 325 MG TABLET PO PRN (16:03)
[2018-05-26] MEDS ORDERED: MAGNESIUM SULFATE 2 GM/50 ML BAG IV PRN (16:03)
[2018-05-26] MEDS ORDERED: VANCOMYCIN PER PHARMACY IV SCH (16:03)
[2018-05-26] MEDS ORDERED: ACETAMINOPHEN 1,000 MG/100 ML BOTTLE IV PRN (16:03)
[2018-05-26] MEDS ORDERED: 0.9 % SODIUM CHLORIDE 1,000 ML IV SCH (16:03)
[2018-05-26] MEDS ORDERED: POTASSIUM CHLORIDE 20 MEQ PACKET PO PRN (16:03)
[2018-05-26] MEDS ORDERED: IPRATROPIUM/ALBUTEROL 3 ML AMPUL.NEB NEB PRN (16:03)
[2018-05-26] MEDS ORDERED: DEXTROSE 31 GM ORAL.SUSP PO PRN (16:03)
[2018-05-26] MEDS ORDERED: DEXTROSE 50% 50 ML VIAL IV PRN (16:03)
[2018-05-26] MEDS ORDERED: HYDROcodone/APAP 5/325MG TABLET PO PRN (16:03)
[2018-05-26] MEDS ORDERED: 0.9 % SODIUM CHLORIDE 10 ML SYRINGE IV PRN (16:03)
[2018-05-26] MEDS ORDERED: ONDANSETRON 4 MG/2 ML VIAL IV PRN (16:03)
[2018-05-26] MEDS: LACTOBACILLUS 1 CAPSULE PO SCH (22:06)
[2018-05-26] MEDS: SENNOSIDES/DOCUSATE SODIUM 1 TAB TABLET PO SCH (22:08)
[2018-05-26] MEDS: TAMSULOSIN 0.4 MG CAPSULE PO SCH (22:08)
[2018-05-26] MEDS: SIMVASTATIN 20 MG TABLET PO SCH (22:09)
[2018-05-26] MEDS: DUTASTERIDE 0.5 MG CAPSULE PO SCH (22:22)
[2018-05-27] MEDS: CLINDAMYCIN 900 MG in DEXTROSE 5% IN WATER 50 ML IV SCH ×3 (05:32→22:16)
[2018-05-27 05:50] LABS: Basophils # (Auto) 0 K/mcL (0.0-0.3); Basophils % (Auto) 0.4 % (0.0-2.0); Eosinophils # (Auto) 0.1 K/mcL (0.0-0.7); Eosinophils % (Auto) 1.9 % (0.0-7.0); Granulocytes % (Auto) 76.9 % (38.0-78.0); Lymphocytes # (Auto) 0.6 K/mcL (1.5-4.8); Lymphocytes % (Auto) 13.1 % (15.5-49.0); Mean Cell Volume 89.1 fL (80.0-100.0); Monocytes # (Auto) 0.4 K/mcL (0.1-0.9); Monocytes % (Auto) 7.7 % (1.0-12.0); Platelet Count 109 K/mcL (140-440); RBC 3.57 M/mcL (4.50-5.90)
[2018-05-27 06:08] LABS: ALT/SGPT 52 U/l (0-40); Albumin 2.8 gm/dL (3.2-5.2); Albumin/Globulin Ratio 0.9 (1.0-2.3); Alkaline Phosphatase 79 U/L (39-117); Bilirubin,Direct < 0.2 mg/dL (0.0-0.3); Blood Urea Nitrogen 24 mg/dl (8-23); Gamma Glutamyl Transpeptidase 28 U/L (8-61); Uric Acid 3.2 mg/dL (2.5-8.0)
[2018-05-27] MEDS: PIPERACILLIN SODIUM/TAZOBACTAM 3.375 GM in DEXTROSE 5% IN WATER 50 ML IV SCH ×3 (06:11→18:10)
[2018-05-27] MEDS: 0.9 % SODIUM CHLORIDE 10 ML SYRINGE IV SCH ×4 (06:11→22:17)
[2018-05-27] MEDS: RIVAROXABAN 15 MG TABLET PO SCH (07:47)
[2018-05-27] MEDS: REPAGLINIDE 1 MG TABLET PO SCH ×3 (07:47→17:05)
[2018-05-27] MEDS: INSULIN LISPRO 1 UNIT/0.01 ML UNIT SQ SCH ×4 (07:54→22:17)
--- NOTE | 2018-05-27 08:01 | Internal Med Progress Note ---
Medical - PN: Subj Patient information: Note initiated : 05/27/18 at 7:56 am Service Date, if different from initiated Date: [] Patient: Marcos,Asa a 88 y/o M admitted on 05/24/18 for weakness. Chief Complaint: [] Interval history: Mr. Rodríguez is a 88 year old M known diabetic with medications including foot ulcers/neuropathy being managed the wound care clinic. Patient presents to the ER with 2 days' onset of worsening weakness inability to bear weight and pain along with redness involving left lower extremity. Patient endorses associated shaking chills and fever along with increasing malaise. Per family patient has been quite active until recently and has had a progressive decline since development of lower extremity ulcer. he lives at [facility] and receives help from his grandson Papo. He denies recent fall, trauma, sick contacts rate he denies chest pain headache but feels very weak and lethargic and was able to only answering yes and no. Initial workup was consistent with severe [place] [address], lactic acid of 4.1 and fever of 102. Patient was started on broad antibiotic coverage after cultures were drawn. Subsequently hospitalist service was consulted At the time evaluation patient is in extreme distress unable to talk experiencing rigors. Blood pressure dropped with heart rate consistently around 130. 4 L of crystalloids was rapidly infused along with initiation of pressors after multiple IV accesses were secured. Initial [place] score 16. 4/13-patient doing better. He vasopressors currently being weaned. Status post 5 L crystalloids. Map at goal. Improving urine output and renal function. White count down to 15,000. Fever defervesced. Cultures pending. CT lower extremity in 24 hours rule out drainable collection. Multiple family members at bedside. Discussed treatment plan/labs and imaging. No questions or concerns expressed by nursing staff or patient 05/26 Patient had no overnight events. Little cantankerous this morning. The redness down into the foot seems improved today. And his pain seems to be better. Leukocytosis resolved. Lactate good. CRP improving. No new complaints other than little bit of a cough with sinus congestion. No chest pain or shortness of breath 05/27 States he always has a hard time sleeping. No events overnight no new changes. No leg pain today. Review of Systems: denies headache/fever/chills/nausea/vomiting/chest or abdominal pain/dyspnea/diarrhea. Otherwise see above. - Constitutional Vitals: Vital Signs Temp Pulse Resp BP Pulse Ox 97.8 F 70 20 128/64 97 05/27/18 06:32 05/27/18 04:00 05/27/18 06:32 05/27/18 06:32 05/27/18 06:32 Period Temp Pulse Resp BP Sys/Gastelum Pulse Ox Last 24 Hr 97.4 F-98.9 F 68-76 15-24 98-128/58-86 94-98 Intake and Output 05/26/18 05/27/18 05/27/18 21:59 05:59 13:59 Intake Total 546 342 56 Output Total 385 975 Balance 161 -633 56 Weight 93.894 kg Intake & Output: Intake & Output 05/26/18 05/27/18 05/27/18 21:59 05:59 13:59 Intake Total 546 342 56 Output Total 385 975 Balance 161 -633 56 Weight 93.894 kg Intake: IV 106 106 56 Cleocin 900 mg In Dextrose 5% 56 56 56 in Water 50 ml @ 100 mls/hr IV Q8H [facility] Rx#:[id number] Zosyn 3.375 gm In Dextrose 5% 50 50 in Water 50 ml @ 100 mls/hr IV Q6H [facility] Rx#:[id number] Oral 440 236 Output: Urine Catheter Amount 385 975 Other: Meal Dinner Percent of Meal Consumed 25% Feeding Ability Independent Urine Appearance Clear Sediment Urine Color Bright Yellow Light [place] Urine Odor Normal Strong Exam: General: Alert, Awake, No acute Distress Eyes/N/T: EOMI, Head/Neck: neck supple, CV: irreg, No murmurs, Pulm: Clear b/l, no wheezing/rhonchi/rales Abd: soft, nontender, +BS x4 Ext: venous stasis changes b/l, swelling left leg with erythema and mild TTP Neuro: Alert, no focal deficits, moves all extremities, Skin: warm/dry Medical - PN: Obj Da - Labs CBC & Chem 7: 05/27/18 04:28 05/27/18 04:28 Labs: Abnormal Lab Results 05/27/18 05/27/18 05/27/18 04:28 04:28 04:28 WBC RBC 3.57 L Hgb 10.5 L Hct 31.8 L RDW 15.0 H Plt Count 109 L Gran % Lymph % (Auto) 13.1 L Gran # Lymph # (Auto) 0.6 L Seg Neutrophils % Lymphocytes % Platelet Estimate RBC Morphology Anisocytosis ESR PT INR ABG Methemoglobin VBG pCO2 VBG pO2 VBG HCO3 VBG Total CO2 VBG O2 Saturation VBG Base Excess VBG Lactic Acid Carboxyhemoglobin Total Hemoglobin Sodium Potassium Chloride Carbon Dioxide 19 L Anion Gap BUN 24 H Creatinine Glucose 180 H Calcium 8.0 L Phosphorus 2.2 L Total Bilirubin AST 47 H ALT 52 H Total Creatine Kinase C-Reactive Protein 7.1 H Total Protein 5.8 L Albumin 2.8 L Globulin Albumin/Globulin Ratio 0.9 L Urine Protein Urine Glucose (UA) Urine Ketones Urine Occult Blood 05/26/18 05/26/18 05/26/18 03:39 03:39 03:39 WBC RBC 3.53 L Hgb 10.4 L Hct 31.8 L RDW 15.6 H Plt Count 99 L Gran % Lymph % (Auto) Gran # Lymph # (Auto) Seg Neutrophils % 86 H Lymphocytes % 8 L Platelet Estimate Decreased A RBC Morphology Abnorm A Anisocytosis Few A ESR PT INR ABG Methemoglobin VBG pCO2 VBG pO2 VBG HCO3 VBG Total CO2 VBG O2 Saturation VBG Base Excess VBG Lactic Acid Carboxyhemoglobin Total Hemoglobin Sodium Potassium Chloride Carbon Dioxide 19 L Anion Gap BUN 30 H Creatinine 1.4 H Glucose 133 H Calcium 7.5 L Phosphorus 2.0 L Total Bilirubin AST 50 H ALT 45 H Total Creatine Kinase C-Reactive Protein 15.1 H Total Protein 5.5 L Albumin 2.7 L Globulin Albumin/Globulin Ratio Urine Protein Urine Glucose (UA) Urine Ketones Urine Occult Blood 05/25/18 05/25/18 05/25/18 20:22 20:22 03:50 WBC RBC Hgb Hct RDW Plt Count Gran % Lymph % (Auto) Gran # Lymph # (Auto) Seg Neutrophils % Lymphocytes % Platelet Estimate RBC Morphology Anisocytosis ESR PT INR ABG Methemoglobin VBG pCO2 VBG pO2 VBG HCO3 VBG Total CO2 VBG O2 Saturation VBG Base Excess VBG Lactic Acid Carboxyhemoglobin Total Hemoglobin Sodium 132 L Potassium 3.2 L Chloride Carbon Dioxide 17 L Anion Gap BUN 33 H Creatinine 1.5 H Glucose 227 H Calcium 7.7 L Phosphorus Total Bilirubin 2.4 H AST 64 H ALT 45 H Total Creatine Kinase 358 H C-Reactive Protein 18.7 H Total Protein 5.8 L Albumin 2.7 L Globulin Albumin/Globulin Ratio 0.9 L Urine Protein Urine Glucose (UA) Urine Ketones Urine Occult Blood 05/25/18 05/24/18 05/24/18 03:50 15:51 15:51 WBC 15.0 H RBC 3.96 L Hgb 11.6 L Hct 36.0 L RDW 15.2 H Plt Count 110 L Gran % Lymph % (Auto) Gran # Lymph # (Auto) Seg Neutrophils % Lymphocytes % 11 L Platelet Estimate Decreased A RBC Morphology Anisocytosis ESR PT INR ABG Methemoglobin 0 L VBG pCO2 27.8 L VBG pO2 64 H VBG HCO3 14.7 L VBG Total CO2 15.5 L VBG O2 Saturation 87.7 H VBG Base Excess -9.5 L VBG Lactic Acid Carboxyhemoglobin 3.4 H Total Hemoglobin 13.0 L Sodium Potassium Chloride Carbon Dioxide Anion Gap BUN Creatinine Glucose Calcium Phosphorus Total Bilirubin AST ALT Total Creatine Kinase C-Reactive Protein 21.7 H Total Protein Albumin Globulin Albumin/Globulin Ratio Urine Protein Urine Glucose (UA) Urine Ketones Urine Occult Blood 05/24/18 05/24/18 05/24/18 15:51 14:00 12:28 WBC RBC Hgb Hct RDW Plt Count Gran % Lymph % (Auto) Gran # Lymph # (Auto) Seg Neutrophils % Lymphocytes % Platelet Estimate RBC Morphology Anisocytosis ESR 36 H PT 16.5 H INR 1.3 H ABG Methemoglobin VBG pCO2 VBG pO2 VBG HCO3 VBG Total CO2 VBG O2 Saturation VBG Base Excess VBG Lactic Acid Carboxyhemoglobin Total Hemoglobin Sodium Potassium Chloride Carbon Dioxide Anion Gap BUN Creatinine Glucose Calcium Phosphorus Total Bilirubin AST ALT Total Creatine Kinase C-Reactive Protein Total Protein Albumin Globulin Albumin/Globulin Ratio Urine Protein 30 A Urine Glucose (UA) >=500 A Urine Ketones 5/tr A Urine Occult Blood 0.03 A 05/24/18 05/24/18 05/24/18 12:28 12:28 12:28 WBC 20.2 H RBC Hgb Hct RDW 15.3 H Plt Count Gran % 94.7 H Lymph % (Auto) 3.6 L Gran # 19.1 H Lymph # (Auto) 0.7 L Seg Neutrophils % Lymphocytes % Platelet Estimate RBC Morphology Anisocytosis ESR PT INR ABG Methemoglobin VBG pCO2 VBG pO2 VBG HCO3 VBG Total CO2 VBG O2 Saturation VBG Base Excess VBG Lactic Acid 4.1 H* Carboxyhemoglobin Total Hemoglobin Sodium 131 L Potassium Chloride 94 L Carbon Dioxide 19 L Anion Gap 18.0 H BUN 37 H Creatinine 1.6 H Glucose 274 H Calcium Phosphorus Total Bilirubin AST ALT Total Creatine Kinase C-Reactive Protein Total Protein Albumin Globulin 4.0 H Albumin/Globulin Ratio Urine Protein Urine Glucose (UA) Urine Ketones Urine Occult Blood Meds: Medications Acetaminophen (Tylenol) 650 mg PO Q4-6HP PRN PRN Reason: PAIN/FEVER > 101 Hydrocodone Bitart/Acetaminophen ([place] 5/325mg) 1 tab PO Q4-6HP PRN PRN Reason: PAIN LEVEL 3-6 Albuterol/Ipratropium (Duoneb) 3 ml NEB Q4HP PRN PRN Reason: Shortness Of Breath Dextrose (Dextrose 50%) 0 ml IV UD PRN PRN Reason: Hypoglycemia Diagnostic Test (Pha) (Accu-Chek) 1 each FS ACHS [facility] Last Admin: 05/27/18 07:47 Dose: 1 each Documented by: Docusate Sodium (Colace) 100 mg PO BID [facility] Last Admin: 05/26/18 22:08 Dose: 100 mg Documented by: Dutasteride (Avodart) 0.5 mg PO HS [facility] Last Admin: 05/26/18 22:22 Dose: 0.5 mg Documented by: Glucose (Insta-Glucose) 15 gm PO PRN PRN PRN Reason: Hypoglycemia Heparin Sodium (Porcine) (Heparin Flush) 2 ml IV Q12 [facility] Last Admin: 05/26/18 22:22 Dose: Not Given Documented by: Clindamycin Phosphate 900 mg/ (Dextrose) 56 mls @ 100 mls/hr IV Q8H [facility]; Protocol Last Infusion: 05/27/18 06:13 Dose: Infused Documented by: Magnesium Sulfate (Magnesium Sulfate) 2 gm in 50 mls @ 50 mls/hr IV UD PRN PRN Reason: MG = or < 1.7 Norepinephrine Bitartrate 16 (mg/ Sodium Chloride) 250 mls @ 9.38 mls/hr IV Q24HP PRN; Protocol PRN Reason: Hypotension Sodium Chloride (Sodium Chloride 0.9%) 250 mls @ 20 mls/hr IV .[id number] [facility] Last Admin: 05/26/18 17:11 Dose: Not Given Documented by: Acetaminophen (Ofirmev) 1,000 mg in 100 mls @ 200 mls/hr IV Q6HP PRN PRN Reason: PAIN/FEVER > 101 Piperacillin Sod/Tazobactam (Sod 3.375 gm/ Dextrose) 50 mls @ 100 mls/hr IV Q6H [facility]; Protocol Last Admin: 05/27/18 06:11 Dose: 100 mls/hr Documented by: Vancomycin HCl 1,500 mg/ (Sodium Chloride) 500 mls @ 333.3 mls/hr IV DAILY [facility] Insulin Glargine (Lantus) 10 unit SQ DAILY [facility] Insulin Human Lispro (Humalog) 0 unit SQ ACHS [facility]; Protocol Last Admin: 05/27/18 07:54 Dose: 1 units Documented by: Iron Carb/Multivit/[place]/Folic Acid (Multivitamin W/Minerals) 1 tab PO DAILY [facility] Lactobacillus Rhamnosus (Culturelle) 1 cap PO BID [facility] Last Admin: 05/26/18 22:06 Dose: 1 cap Documented by: Metoprolol Succinate (Toprol Xl) 25 mg PO DAILY [facility] Morphine Sulfate (Morphine) 1 - 2 mg IV Q3HP PRN PRN Reason: PAIN LEVEL > 6 Nicotine (Nicoderm) 21 mg TOPICAL DAILY@1000 [facility]AN Ondansetron HCl (Zofran) 4 mg IV Q4-6HP PRN PRN Reason: Nausea And Vomiting Potassium Chloride (Klor-Con) 40 meq PO DAILYP PRN PRN Reason: K+ < 3.5 Repaglinide (Prandin) 0.5 mg PO TIDAC [facility] Last Admin: 05/27/18 07:47 Dose: 0.5 mg Documented by: [facility]) [facility] Last Admin: 05/27/18 07:47 Dose: 15 mg Documented by: Senna/Docusate Sodium (Senna Plus Tablet) [address] [facility] Last Admin: 05/26/18 22:08 Dose: 1 tab Documented by: Simvastatin (Zocor) [address] [facility] Last Admin: 05/26/18 22:09 Dose: 20 mg Documented by: Sitagliptin Phosphate (Januvia) 50 mg PO DAILY [facility] Sodium Chloride (Saline Flush) 10 ml IV UD PRN PRN Reason: FLUSH Sodium Chloride (Saline Flush) 10 ml IV Q8 [facility] Last Admin: 05/27/18 06:11 Dose: Not Given Documented by: Sodium Chloride (Saline Flush) 10 ml IV Q12 [facility] Last Admin: 05/26/18 22:09 Dose: Not Given Documented by: Tamsulosin HCl (Flomax) 0.4 mg PO HS [facility] Last Admin: 05/26/18 22:08 Dose: 0.4 mg Documented by: Vancomycin HCl (Vancomycin Per Pharmacy) 1 order IV UD [facility]; Protocol - ABG Interpretation ABG results: 05/24/18 15:51 ABG Methemoglobin 0 L VBG pH 7.34 VBG pCO2 27.8 L VBG pO2 64 H VBG HCO3 14.7 L VBG Total CO2 15.5 L VBG O2 Saturation 87.7 H VBG Base Excess -9.5 L Medical - PN: A/P - Time Spent With Patient Total time spent is greater than 50% in coordination of care (as documented) at patient's floor/unit and/or counseling patient: - Narrative A/P Narrative: A: *Septic shock with multiple end-organ dysfunction: resolved -Lactic acidosis / leukocytosis resolved *LLE cellulitis w/lymphangitis, underlying diabetes: -CT imaging and evaluation by surgeon, no nec fasc. And lab findings trending in right direction -Likely toxin producing strep, clinda added -CRP improving -Acute mental status change: 2/2 above, much improved mentation. -DELIA on ?CKD (unknown baseline, ?CKD): 2/2 above -1.2<1.4<1.6 -DM type II: -Afib, chronic: on BB and xarelto -hyponatremia: Improved Plan: -MRI ankle given question of osteo lateral malleolus -further recs per wound care -vanc/zosyn, clinda added for antitoxin effect. start deescalating -Dr. Maldonado following -cont home BB -basal insulin and SSI -pt/ot -ppx: Rivaroxaban DNR Medical - PN: Qual - VTE Deep Vein Thrombosis/Pulmonary Embolism Present on Admission: No
[2018-05-27] MEDS: 0.9 % SODIUM CHLORIDE 250 ML IV SCH (08:30)
[2018-05-27] MEDS ORDERED: VANCOMYCIN 1,500 MG in 0.9 % SODIUM CHLORIDE 500 ML IV SCH (09:00)
[2018-05-27] MEDS ORDERED: INSULIN GLARGINE, HUMAN 1 UNIT/0.01 ML SQ SCH (09:00)
[2018-05-27] MEDS: MULTIVIT,THER IRON,CA,FA & MIN 1 TABLET PO SCH (11:28)
[2018-05-27] MEDS: sitaGLIPtin 50 MG TABLET PO SCH (11:28)
[2018-05-27] MEDS: LACTOBACILLUS 1 CAPSULE PO SCH ×2 (11:28→22:15)
[2018-05-27] MEDS: METOPROLOL SUCCINATE 25 MG TAB.XL.24H PO SCH (11:29)
[2018-05-27] MEDS: DOCUSATE SODIUM 100 MG CAPSULE PO SCH ×2 (11:30→22:18)
[2018-05-27] MEDS: INSULIN GLARGINE, HUMAN 1 UNIT/0.01 ML SQ SCH (11:35)
[2018-05-27] MEDS: NICOTINE 21 MG PATCH TOPICAL SCH (11:40)
--- NOTE | 2018-05-27 17:21 | General Surgery Progress Note ---
Subjective Patient reports: feels better, tolerating a regular diet, afebrile Narrative: Note initiated : 05/27/18 at 5:18 pm Service Date, if different from initiated Date: [] Patient: MarcosAsa a 88 y/o M admitted on 05/24/18 for weakness. Chief Complaint: [] I saw this patient in room 128. He is now transferred out of ICU to [facility] floor. Spoke at length with patient's daughter and other family members. Patient is feeling well and is back to his baseline. Sepsis syndrome has resolved clinically. Normal white count. CRP trending down. Creatinine 1.2. Objective Temp Pulse Resp BP Pulse Ox 98 F 70 18 110/63 97 05/27/18 16:00 05/27/18 04:00 05/27/18 16:00 05/27/18 16:00 05/27/18 16:00 Afebrile. Vital signs are stable. General physical examination is unremarkable for any acute findings. Local examination: Significant improvement in the dermatitis and pigmentation involving the pressure ulcer site off the left leg mid two thirds. Superficial epidermal ulceration is covered with thin biofilm. No purulence. No tenderness. No crepitation. No odor. There is lymphatic drainage but decreasing in amount. He has had similar infection involving the right extremity over 1 month ago. Was treated at [facility] and discharged. CT scan of the left leg was negative for any deep loculated collections or abscesses. He underwent an MRI today. I have not seen the report or the pictures. - Additional Data Intake & Output - Last 24 hours: Intake & Output 05/25/18 05/26/18 05/27/18 05/28/18 05:59 05:59 05:59 05:59 Intake Total 7087 2199 3534 1576 Output Total 1984 1945 1974 530 Balance 5102 254 1560 1046 Weight 200 lb 204 lb 207 lb - Labs 05/27/18 04:28 05/27/18 04:28 Diabetes panel 05/27/18 Range/Units 04:28 Sodium 133 (133-145) mmol/L Potassium 3.5 (3.3-5.1) mmol/L Chloride 105 (96-108) mmol/L Carbon Dioxide 19 L (22-30) mmol/L BUN 24 H (8-23) mg/dl Creatinine 1.2 (0.7-1.2) mg/dl Glucose 180 H (70-105) mg/dL Calcium 8.0 L (8.6-10.4) mg/dl AST 47 H (0-37) U/l ALT 52 H (0-40) U/l Alkaline Phosphatase 79 (39-117) U/L Total Protein 5.8 L (5.9-8.4) gm/dL Albumin 2.8 L (3.2-5.2) gm/dL Triglycerides 131 (<150) mg/dl Calcium panel 05/27/18 Range/Units 04:28 Calcium 8.0 L (8.6-10.4) mg/dl Phosphorus 2.2 L (2.7-4.5) mg/dL Albumin 2.8 L (3.2-5.2) gm/dL Pituitary panel 05/27/18 Range/Units 04:28 Sodium 133 (133-145) mmol/L Potassium 3.5 (3.3-5.1) mmol/L Chloride 105 (96-108) mmol/L Carbon Dioxide 19 L (22-30) mmol/L BUN 24 H (8-23) mg/dl Creatinine 1.2 (0.7-1.2) mg/dl Glucose 180 H (70-105) mg/dL Calcium 8.0 L (8.6-10.4) mg/dl Adrenal panel 05/27/18 Range/Units 04:28 Sodium 133 (133-145) mmol/L Potassium 3.5 (3.3-5.1) mmol/L Chloride 105 (96-108) mmol/L Carbon Dioxide 19 L (22-30) mmol/L BUN 24 H (8-23) mg/dl Creatinine 1.2 (0.7-1.2) mg/dl Glucose 180 H (70-105) mg/dL Calcium 8.0 L (8.6-10.4) mg/dl Total Bilirubin 0.5 (0.0-1.0) mg/dL AST 47 H (0-37) U/l ALT 52 H (0-40) U/l Alkaline Phosphatase 79 (39-117) U/L Total Protein 5.8 L (5.9-8.4) gm/dL Albumin 2.8 L (3.2-5.2) gm/dL Assessment and Plan (1) Sepsis Status: Acute Current Visit: Yes (2) Diabetic neuropathy Status: Chronic Current Visit: No (3) Diabetic toe ulcer Status: Chronic Current Visit: No - Narrative A/P Narrative: Assessment: Sepsis syndrome clinically resolved. Dermatitis, cellulitis left leg improving. Plan: Will continue current wound care management. Clean with chlorhexidine and apply topical bacitracin twice a day. Will review MRI findings. Following patient along with hospitalist. - Time Spent With Patient Total time spent is greater than 50% in coordination of care (as documented) at patient's floor/unit and/or counseling patient: 15 - 24 minutes
--- NOTE | 2018-05-27 19:33 | Magnetic Resonance Report ---
CLINICAL INFORMATION: Possible osteomyelitis in the lateral malleolus on CT two days prior COMPARISON: Ankle CT 05/25/2018 TECHNIQUE: Axial T1 proton density T2 coronal T1 and sagittal proton density and coronal STIR images are obtained through the left ankle hindfoot. Exam is degraded by moderate motion artifact FINDINGS: There is very tiny focus of edema in the anterior lateral malleolus corresponding to the CT finding. This may represent sterile edema or even a degenerative cyst, rather than osteomyelitis. Marrow signal is otherwise normal. The ankle and hindfoot. Moderate effusion present the ankle mortise is also talocalcaneal joint. Tendon and sheaths are unremarkable. Diffuse subcutaneous edema is noted. IMPRESSION: Tiny focus of increased signal corresponding to the radiolucent focus in the anterolateral malleolus. This is quite subtle and unlikely to represent true osteomyelitis. It may represent small amount of sterile edema or a small subcortical cyst. Diffuse cellulitis Fluid in the ankle mortise and the talocalcaneal joint compatible with mild arthritis Interpreted and Authenticated by: Leon Schaefer 05/27/18
[2018-05-27] MEDS: TAMSULOSIN 0.4 MG CAPSULE PO SCH (22:15)
[2018-05-27] MEDS: DUTASTERIDE 0.5 MG CAPSULE PO SCH (22:15)
[2018-05-27] MEDS: SIMVASTATIN 20 MG TABLET PO SCH (22:16)
[2018-05-27] MEDS: SENNOSIDES/DOCUSATE SODIUM 1 TAB TABLET PO SCH (22:16)
[2018-05-28] MEDS: PIPERACILLIN SODIUM/TAZOBACTAM 3.375 GM in DEXTROSE 5% IN WATER 50 ML IV SCH ×5 (00:37→23:47)
[2018-05-28] MEDS: CLINDAMYCIN 900 MG in DEXTROSE 5% IN WATER 50 ML IV SCH (05:11)
[2018-05-28] MEDS: 0.9 % SODIUM CHLORIDE 10 ML SYRINGE IV SCH ×3 (05:22→22:25)
[2018-05-28 05:59] LABS: ALT/SGPT 55 U/l (0-40); Albumin 2.8 gm/dL (3.2-5.2); Albumin/Globulin Ratio 0.9 (1.0-2.3); Alkaline Phosphatase 107 U/L (39-117); Bilirubin,Direct < 0.2 mg/dL (0.0-0.3); Blood Urea Nitrogen 18 mg/dl (8-23); Gamma Glutamyl Transpeptidase 41 U/L (8-61); Uric Acid 2.9 mg/dL (2.5-8.0)
[2018-05-28] MEDS: REPAGLINIDE 1 MG TABLET PO SCH ×3 (07:54→17:04)
[2018-05-28] MEDS: RIVAROXABAN 15 MG TABLET PO SCH (07:54)
[2018-05-28] MEDS: INSULIN LISPRO 1 UNIT/0.01 ML UNIT SQ SCH ×4 (08:12→22:24)
--- NOTE | 2018-05-28 08:18 | Internal Med Progress Note ---
Medical - PN: Subj Patient information: Note initiated : 05/28/18 at 8:12 am Service Date, if different from initiated Date: [] Patient: Marcos,Asa a 88 y/o M admitted on 05/24/18 for weakness. Chief Complaint: [] Interval history: Mr. Rodríguez is a 88 year old M known diabetic with medications including foot ulcers/neuropathy being managed the wound care clinic. Patient presents to the ER with 2 days' onset of worsening weakness inability to bear weight and pain along with redness involving left lower extremity. Patient endorses associated shaking chills and fever along with increasing malaise. Per family patient has been quite active until recently and has had a progressive decline since development of lower extremity ulcer. he lives at [facility] and receives help from his grandson Papo. He denies recent fall, trauma, sick contacts rate he denies chest pain headache but feels very weak and lethargic and was able to only answering yes and no. Initial workup was consistent with severe sepsis [place] [address], lactic acid of 4.1 and fever of 102. Patient was started on broad antibiotic coverage after cultures were drawn. Subsequently hospitalist service was consulted At the time evaluation patient is in extreme distress unable to talk experiencing rigors. Blood pressure dropped with heart rate consistently around 130. 4 L of crystalloids was rapidly infused along with initiation of pressors after multiple IV accesses were secured. Initial Kidder score 16. 05/25-patient doing better. He vasopressors currently being weaned. Status post 5 L crystalloids. Map at goal. Improving urine output and renal function. White count down to 15,000. Fever defervesced. Cultures pending. CT lower extremity in 24 hours rule out drainable collection. Multiple family members at bedside. Discussed treatment plan/labs and imaging. No questions or concerns expressed by nursing staff or patient 05/26 Patient had no overnight events. Little cantankerous this morning. The redness down into the foot seems improved today. And his pain seems to be better. Leukocytosis resolved. Lactate good. CRP improving. No new complaints other than little bit of a cough with sinus congestion. No chest pain or shortness of breath 05/27 States he always has a hard time sleeping. No events overnight no new changes. No leg pain today. 05/28 Slept better last night. No new complaints. No issues overnight. De-escalate antibiotics. Review of Systems: denies headache/fever/chills/nausea/vomiting/chest or abdominal pain/dyspnea/diarrhea. Otherwise see above. - Constitutional Vitals: Vital Signs Temp Pulse Resp BP Pulse Ox 97.5 F 67 20 131/75 98 05/28/18 07:57 05/28/18 07:57 05/28/18 07:57 05/28/18 07:57 05/28/18 07:57 Period Temp Pulse Resp BP Sys/Gastelum Pulse Ox Last 24 Hr 95 F-98.3 F 60-67 18-22 101-135/62-76 95-98 Intake and Output 05/27/18 05/28/18 05/28/18 21:59 05:59 13:59 Intake Total 906 846 Output Total 251 600 Balance 655 246 Weight 95.254 kg Intake & Output: Intake & Output 05/27/18 05/28/18 05/28/18 21:59 05:59 13:59 Intake Total 906 846 Output Total 251 600 Balance 655 246 Weight 95.254 kg Intake: IV 106 156 Cleocin 900 mg In Dextrose 5% 56 56 in Water 50 ml @ 100 mls/hr IV Q8H [facility] Rx#:[id number] Zosyn 3.375 gm In Dextrose 5% 50 100 in Water 50 ml @ 100 mls/hr IV Q6H [facility] Rx#:[id number] Oral 800 690 Output: Void Amount 250 600 # of times incontinent of urine 1 Other: Meal ceral Percent of Meal Consumed 100% Feeding Ability Independent Urine Appearance Clear Clear Urine Color Light Brigida Bright Yellow Urine Odor Normal Normal Stool Size Small Stool Color Brown Stool Consistency Soft # Voids 1 # Bowel Movements 1 Exam: General: Alert, Awake, No acute Distress Eyes/N/T: EOMI, Head/Neck: neck supple, CV: irreg, No murmurs, Pulm: Clear b/l, no wheezing/rhonchi/rales Abd: soft, nontender, +BS x4 Ext: venous stasis changes b/l, swelling left leg with erythema and mild TTP all improving Neuro: Alert, no focal deficits, moves all extremities, Skin: warm/dry Medical - PN: Obj Da - Labs CBC & Chem 7: 05/27/18 04:28 05/28/18 04:22 Labs: Abnormal Lab Results 05/28/18 05/27/18 05/27/18 04:22 04:28 04:28 RBC 3.57 L Hgb 10.5 L Hct 31.8 L RDW 15.0 H Plt Count 109 L Lymph % (Auto) 13.1 L Lymph # (Auto) 0.6 L Seg Neutrophils % Lymphocytes % Platelet Estimate RBC Morphology Anisocytosis Carbon Dioxide 19 L BUN Creatinine Glucose 171 H Calcium 8.3 L Phosphorus 2.6 L AST 42 H ALT 55 H Total Creatine Kinase C-Reactive Protein 7.1 H Total Protein 5.8 L Albumin 2.8 L Albumin/Globulin Ratio 0.9 L 05/27/18 05/26/18 05/26/18 04:28 03:39 03:39 RBC Hgb Hct RDW Plt Count Lymph % (Auto) Lymph # (Auto) Seg Neutrophils % Lymphocytes % Platelet Estimate RBC Morphology Anisocytosis Carbon Dioxide 19 L 19 L BUN 24 H 30 H Creatinine 1.4 H Glucose 180 H 133 H Calcium 8.0 L 7.5 L Phosphorus 2.2 L 2.0 L AST 47 H 50 H ALT 52 H 45 H Total Creatine Kinase C-Reactive Protein 15.1 H Total Protein 5.8 L 5.5 L Albumin 2.8 L 2.7 L Albumin/Globulin Ratio 0.9 L 05/26/18 05/25/18 05/25/18 03:39 20:22 20:22 RBC 3.53 L Hgb 10.4 L Hct 31.8 L RDW 15.6 H Plt Count 99 L Lymph % (Auto) Lymph # (Auto) Seg Neutrophils % 86 H Lymphocytes % 8 L Platelet Estimate Decreased A RBC Morphology Abnorm A Anisocytosis Few A Carbon Dioxide BUN Creatinine Glucose Calcium Phosphorus AST ALT Total Creatine Kinase 358 H C-Reactive Protein 18.7 H Total Protein Albumin Albumin/Globulin Ratio Meds: Medications Acetaminophen (Tylenol) 650 mg PO Q4-6HP PRN PRN Reason: PAIN/FEVER > 101 Hydrocodone Bitart/Acetaminophen ([place] 5/325mg) 1 tab PO Q4-6HP PRN PRN Reason: PAIN LEVEL 3-6 Albuterol/Ipratropium (Duoneb) 3 ml NEB Q4HP PRN PRN Reason: Shortness Of Breath Dextrose (Dextrose 50%) 0 ml IV UD PRN PRN Reason: Hypoglycemia Diagnostic Test (Pha) (Accu-Chek) 1 each FS ACHS [facility] Last Admin: 05/28/18 07:58 Dose: 1 each Documented by: Docusate Sodium (Colace) 100 mg PO BID [facility] Last Admin: 05/27/18 22:18 Dose: Not Given Documented by: Dutasteride (Avodart) 0.5 mg PO HS [facility] Last Admin: 05/27/18 22:15 Dose: 0.5 mg Documented by: Glucose (Insta-Glucose) 15 gm PO PRN PRN PRN Reason: Hypoglycemia Clindamycin Phosphate 900 mg/ (Dextrose) 56 mls @ 100 mls/hr IV Q8H [facility]; Protoc ol Last Admin: 05/28/18 05:11 Dose: 50 mls/hr Documented by: Magnesium Sulfate (Magnesium Sulfate) 2 gm in 50 mls @ 50 mls/hr IV UD PRN PRN Reason: MG = or < 1.7 Norepinephrine Bitartrate 16 (mg/ Sodium Chloride) 250 mls @ 9.38 mls/hr IV Q24HP PRN; Protocol PRN Reason: Hypotension Acetaminophen (Ofirmev) 1,000 mg in 100 mls @ 200 mls/hr IV Q6HP PRN PRN Reason: PAIN/FEVER > 101 Piperacillin Sod/Tazobactam (Sod 3.375 gm/ Dextrose) 50 mls @ 100 mls/hr IV Q6H [facility]; Protocol Last Infusion: 05/28/18 05:47 Dose: Infused Documented by: Vancomycin HCl 1,500 mg/ (Sodium Chloride) 500 mls @ 333.3 mls/hr IV DAILY [facility] Last Infusion: 05/27/18 13:41 Dose: Infused Documented by: Insulin Glargine (Lantus) 14 unit SQ DAILY [facility] Last Admin: 05/27/18 11:35 Dose: 14 units Documented by: Insulin Human Lispro (Humalog) 0 unit SQ ACHS [facility]; Protocol Last Admin: 05/27/18 22:17 Dose: 2 units Documented by: Iron Carb/Multivit/[place]/Folic Acid (Multivitamin W/Minerals) 1 tab PO DAILY S Last Admin: 05/27/18 11:28 Dose: 1 tab Documented by: Lactobacillus Rhamnosus (Culturelle) 1 cap PO BID [facility] Last Admin: 05/27/18 22:15 Dose: 1 cap Documented by: Metoprolol Succinate (Toprol Xl) 25 mg PO DAILY [facility] Last Admin: 05/27/18 11:29 Dose: 25 mg Documented by: Morphine Sulfate (Morphine) 1 - 2 mg IV Q3HP PRN PRN Reason: PAIN LEVEL > 6 Nicotine (Nicoderm) 21 mg TOPICAL DAILY@1000 [facility] Last Admin: 05/27/18 11:40 Dose: 21 mg Documented by: Ondansetron HCl (Zofran) 4 mg IV Q4-6HP PRN PRN Reason: Nausea And Vomiting Potassium Chloride (Klor-Con) 40 meq PO DAILYP PRN PRN Reason: K+ < 3.5 Repaglinide (Prandin) 0.5 mg PO TIDAC [facility] Last Admin: 05/28/18 07:54 Dose: 0.5 mg Documented by: [facility]) [facility] Last Admin: 05/28/18 07:54 Dose: 15 mg Documented by: Senna/Docusate Sodium (Senna Plus Tablet) [address] [facility] Last Admin: 05/27/18 22:16 Dose: Not Given Documented by: Simvastatin (Zocor) [address] [facility] Last Admin: 05/27/18 22:16 Dose: 20 mg Documented by: Sitagliptin Phosphate (Januvia) 50 mg PO DAILY [facility] Last Admin: 05/27/18 11:28 Dose: 50 mg Documented by: Sodium Chloride (Saline Flush) 10 ml IV UD PRN PRN Reason: FLUSH Sodium Chloride (Saline Flush) 10 ml IV Q8 [facility] Last Admin: 05/28/18 05:22 Dose: 10 ml Documented by: Tamsulosin HCl (Flomax) 0.[address] [facility] Last Admin: 05/27/18 22:15 Dose: 0.4 mg Documented by: Vancomycin HCl (Vancomycin Per Pharmacy) 1 order IV [facility] [place] Protocol - ABG Interpretation ABG results: 05/24/18 15:51 ABG Methemoglobin 0 L VBG pH 7.34 VBG pCO2 27.8 L VBG pO2 64 H VBG HCO3 14.7 L VBG Total CO2 15.5 L VBG O2 Saturation 87.7 H VBG Base Excess -9.5 L Medical - PN: A/P - Time Spent With Patient Total time spent is greater than 50% in coordination of care (as documented) at patient's floor/unit and/or counseling patient: - Narrative A/P Narrative: A: *Septic shock with multiple end-organ dysfunction: resolved -Lactic acidosis / leukocytosis resolved *LLE cellulitis w/lymphangitis, underlying diabetes: improving -CT imaging and evaluation by surgeon, no nec fasc. And lab findings trending in right direction -Likely toxin producing strep, clinda added -CRP improving -No osteo evident on MRI -Acute mental status change: 2/2 above, resolved -DELIA on ?CKD (unknown baseline, ?CKD): 2/2 above -1.2<1.4<1.6 -DM type II: -Afib, chronic: on BB and xarelto -hyponatremia: Improved Plan: -further recs per wound care -Dr. Maldonado following -vanc(d/c)/zosyn, clinda added for antitoxin effect - d/c tomorrow, will treat for total course of 14-days -cont home BB -basal insulin and SSI -pt/ot -ppx: Rivaroxaban DNR Medical - PN: Qual - VTE Deep Vein Thrombosis/Pulmonary Embolism Present on Admission: No
[2018-05-28] MEDS: LACTOBACILLUS 1 CAPSULE PO SCH ×2 (09:22→22:23)
[2018-05-28] MEDS: INSULIN GLARGINE, HUMAN 1 UNIT/0.01 ML SQ SCH (09:22)
[2018-05-28] MEDS: DOCUSATE SODIUM 100 MG CAPSULE PO SCH ×2 (09:22→22:23)
[2018-05-28] MEDS: MULTIVIT,THER IRON,CA,FA & MIN 1 TABLET PO SCH (09:22)
[2018-05-28] MEDS: sitaGLIPtin 50 MG TABLET PO SCH (09:23)
[2018-05-28] MEDS: METOPROLOL SUCCINATE 25 MG TAB.XL.24H PO SCH (09:23)
[2018-05-28] MEDS: NICOTINE 21 MG PATCH TOPICAL SCH (09:23)
--- NOTE | 2018-05-28 12:32 | Discharge Summary ---
Medical - DS: Prov Patient information: Note initiated : 05/28/18 at 12:28 pm Service Date, if different from initiated Date: [] Patient: Ammon Rodríguez 88 y/o M admitted on 05/24/18 for weakness. Chief Complaint: [] Date of admission: 05/24/18 15:25 Discharge date: 05/29/18 Primary care physician: Melania Yi Consults: 05/24/18 Consult to Physician [CONS] Stat Comment: Consulting Provider: Yordy Velazco Reason For Exam: Physician to Consult 05/24/18 14:29 Consult to Physician [CONS] Stat Comment: Consulting Provider: Ciaran Maldonado Reason For Exam: Physician to Consult 05/24/18 15:35 Consult to Physician [CONS] Routine Comment: Consulting Provider: Ciaran Maldonado Reason For Exam: Physician to Consult Medical - DS: Meds - Discharge Medications Prescriptions: Amoxicillin/Potassium Clav [Augmentin] 875 mg PO Q12H #14 tab Lactobacillus [Culturelle] 1 cap PO BID #40 cap Active and Home Medications: Home Medications Dutasteride [Avodart] 0.5 mg PO HS 05/24/18 [History Confirmed 05/24/18 Last Taken Unknown] Empagliflozin [Jardiance] 25 mg PO DAILY 05/24/18 [History Confirmed 05/24/18 Last Taken Unknown] Hydrochlorothiazide [Oretic] 25 mg PO DAILY 05/24/18 [History Confirmed 05/24/18 Last Taken Unknown] Insulin Degludec [Tresiba Flextouch U-200] 10 unit SQ DAILY 05/24/18 [History Confirmed 05/24/18 Last Taken Unknown] Lovastatin 40 mg PO QHS 05/24/18 [History Confirmed 05/24/18 Last Taken Unknown] Metoprolol Succinate [Toprol Xl] 25 mg PO DAILY 05/24/18 [History Confirmed 05/24/18 Last Taken Unknown] Repaglinide [Prandin] 1 mg PO TID 05/24/18 [History Confirmed 05/24/18 Last Taken Unknown] Rivaroxaban [Xarelto] 20 mg PO DAILY 05/24/18 [History Confirmed 05/24/18 Last Taken Unknown] Tamsulosin [Flomax] 0.4 mg PO HS 05/24/18 [History Confirmed 05/24/18 Last Taken Unknown] metFORMIN HCL [Metformin HCl] 1,000 mg PO DAILY 05/24/18 [History Confirmed 05/24/18 Last Taken Unknown] Home Medications Dutasteride [Avodart] 0.5 mg PO HS 05/24/18 [History Confirmed 05/24/18 Last Taken Unknown] Empagliflozin [Jardiance] 25 mg PO DAILY 05/24/18 [History Confirmed 05/24/18 Last Taken Unknown] Hydrochlorothiazide [Oretic] 25 mg PO DAILY 05/24/18 [History Confirmed 05/24/18 Last Taken Unknown] Insulin Degludec [Tresiba Flextouch U-200] 10 unit SQ DAILY 05/24/18 [History Confirmed 05/24/18 Last Taken Unknown] Lovastatin 40 mg PO QHS 05/24/18 [History Confirmed 05/24/18 Last Taken Unknown] Metoprolol Succinate [Toprol Xl] 25 mg PO DAILY 05/24/18 [History Confirmed 05/24/18 Last Taken Unknown] Repaglinide [Prandin] 1 mg PO TID 05/24/18 [History Confirmed 05/24/18 Last Taken Unknown] Rivaroxaban [Xarelto] 20 mg PO DAILY 05/24/18 [History Confirmed 05/24/18 Last Taken Unknown] Tamsulosin [Flomax] 0.4 mg PO HS 05/24/18 [History Confirmed 05/24/18 Last Taken Unknown] metFORMIN HCL [Metformin HCl] 1,000 mg PO DAILY 05/24/18 [History Confirmed 05/24/18 Last Taken Unknown] Amoxicillin/Potassium Clav [Augmentin] 875 mg PO Q12H #14 tab 05/28/18 [Rx Last Taken Unknown] Lactobacillus [Culturelle] 1 cap PO BID #40 cap 05/28/18 [Rx Last Taken Unknown] Medical - DS: Hosp Hospital course: Mr. Rodríguez is a 88 year old M Mr. Rodríguez is a 88 year old M known diabetic with medications including foot ulcers/neuropathy being managed the wound care clinic. Patient presents to the ER with 2 days' onset of worsening weakness inability to bear weight and pain along with redness involving left lower extremity. Patient endorses associated shaking chills and fever along with increasing malaise. Per family patient has been quite active until recently and has had a progressive decline since development of lower extremity ulcer. he lives at [facility] and receives help from his grandson Papo. He denies recent fall, trauma, sick contacts rate he denies chest pain headache but feels very weak and lethargic and was able to only answering yes and no. Initial workup was consistent with severe sepsis [place] [address], lactic acid of 4.1 and fever of 102. Patient was started on broad antibiotic coverage after cultures were drawn. Subsequently hospitalist service was consulted At the time evaluation patient is in extreme distress unable to talk experiencing rigors. Blood pressure dropped with heart rate consistently around 130. 4 L of crystalloids was rapidly infused along with initiation of pressors after multiple IV accesses were secured. Initial Hartley score 16. 05/25-patient doing better. He vasopressors currently being weaned. Status post 5 L crystalloids. Map at goal. Improving urine output and renal function. White count down to 15,000. Fever defervesced. Cultures pending. CT lower extremity in 24 hours rule out drainable collection. Multiple family members at bedside. Discussed treatment plan/labs and imaging. No questions or concerns expressed by nursing staff or patient 05/26 Patient had no overnight events. Little cantankerous this morning. The redness down into the foot seems improved today. And his pain seems to be better. Leukocytosis resolved. Lactate good. CRP improving. No new complaints other than little bit of a cough with sinus congestion. No chest pain or shortness of breath 05/27 States he always has a hard time sleeping. No events overnight no new changes. No leg pain today. 05/28 Slept better last night. No new complaints. No issues overnight. De-escalate antibiotics. 05/29 No overnight events. No new complaints. Adamantly refuses care home facility even after my discussion with him the concern about his safety. He does have family that he lives with and after discussion with case management was for them to come in and be educated on taking care of him. He is also fired home health care services in the past and so that is not available. Family is here now nursing and staff are educating them on support and care. Patient is at increased risk for readmission. Discharge diagnosis: Septic shock severe left lower extremity cellulitis with lymphangitis Secondary discharge diagnosis: Acute kidney injury, diabetes, A. fib - Time Spent with Patient Total time spent providing and/or coordinating discharge services: Greater than 30 minutes Medical - DS: Exam - Constitutional Vitals: Vital Signs Temp Pulse Resp BP Pulse Ox 05/28/18 12:00 97.7 F 65 20 129/72 97 05/28/18 07:57 97.5 F 67 20 131/75 98 05/28/18 04:24 98.2 F 60 20 132/76 97 05/27/18 22:57 98.3 F 67 22 117/70 96 05/27/18 18:52 95 F L 63 22 135/67 95 05/27/18 16:00 98 F 18 110/63 97 Intake and Output 05/27/18 05/28/18 05/28/18 21:59 05:59 13:59 Intake Total 906 846 120 Output Total 251 600 Balance 655 246 120 Intake: IV 106 156 Cleocin 900 mg In Dextrose 5% 56 56 in Water 50 ml @ 100 mls/hr IV Q8H [facility] Rx#:[id number] Zosyn 3.375 gm In Dextrose 5% 50 100 in Water 50 ml @ 100 mls/hr IV Q6H [facility] Rx#:[id number] Oral 800 690 120 Output: Void Amount 250 600 # of times incontinent of urine 1 Other: Meal ceral Breakfast Percent of Meal Consumed 100% 100% Feeding Ability Independent Urine Appearance Clear Clear Clear Urine Color Light Brigida Bright Yellow Dark Yellow Urine Odor Normal Normal Stool Size Small Stool Color Brown Stool Consistency Soft # Voids 1 # Bowel Movements 1 Weight 95.254 kg Medical - DS: Data Labs on day of discharge: Labs from last 24 hours 05/28/18 04:22 Sodium 134 Potassium 3.6 Chloride 104 Carbon Dioxide 19 L Anion Gap 11.0 BUN 18 Creatinine 1.2 GFR Calculation 54 Glucose 171 H Uric Acid 2.9 Calcium 8.3 L Phosphorus 2.6 L Magnesium 2.1 Total Bilirubin 0.5 Direct Bilirubin < 0.2 GGT 41 AST 42 H ALT 55 H Alkaline Phosphatase 107 Lactate Dehydrogenase 159 Total Protein 5.8 L Albumin 2.8 L Globulin 3.0 Albumin/Globulin Ratio 0.9 L Triglycerides 94 Preliminary micro results at discharge 05/24/18 12:49 Blood Culture - Preliminary Blood 05/24/18 12:39 Blood Culture - Preliminary Blood Medical - DS: A/P - Patient/Caregiver Discharge Instructions Activity: as per physical therapy Diet: Consistent Carbohydrate Prescriptions: Amoxicillin/Potassium Clav [Augmentin] 875 mg PO Q12H #14 tab Lactobacillus [Culturelle] 1 cap PO BID #40 cap Other Amb Orders: Wound Care Instructions Location: None Selected - Follow up Plan Follow up with: Ciaran Maldonado MD [Physician] - (follow up 1 week after discharge in wound clinic) Melania Yi ARNP [Primary Care Provider] - Disposition: Home, Self-Care Prognosis: Fair Rehab Potential: Fair Overall status at discharge: patient is progressing back to baseline Medical - DS: Qual - VTE Deep Vein Thrombosis/Pulmonary Embolism Present on Admission: No
[2018-05-28] MEDS: CLINDAMYCIN 600 MG in DEXTROSE 5% IN WATER 50 ML IV SCH ×2 (14:23→22:25)
--- NOTE | 2018-05-28 17:05 | General Surgery Progress Note ---
Subjective Patient reports: no new complaints, other (Keen to go home.) Narrative: Note initiated : 05/28/18 at 5:01 pm Service Date, if different from initiated Date: [] Patient: Marcos,Asa a 88 y/o M admitted on 05/24/18 for weakness. Chief Complaint: [] I saw Mr. RAYMUNDO earlier today with Irma RIVERO Wound Nurse. Reassessed him along with Nohelia RN taking care of him today. Examined his wounds. Spoke at length with his daughter today and extensively with other family members grand and great grand children yesterday. Patient is feisty and cheerful today. Back to his base line. Keen to go home, Will follow up at wound care after discharge. He slept well. Usual ADLs. Denies any subjective or constitutional complaints. Objective Temp Pulse Resp BP Pulse Ox 97.7 F 65 20 129/72 97 05/28/18 12:00 05/28/18 12:00 05/28/18 12:00 05/28/18 12:00 05/28/18 12:00 AVSS. ANAHI: WNL . No interval changes. Labs reviewed. CT / MRI reports and pictures reviewed. L/E: Significant improvement. Resolved cellulitis. Epidermal ulcer is dry. Scant lymphatic drainage. No edema. No crepitus. No odor. Periwound skin and sub cutaneous texture is at base line. - Additional Data Intake & Output - Last 24 hours: Intake & Output 05/26/18 05/27/18 05/28/18 05/29/18 05:59 05:59 05:59 05:59 Intake Total 2199 8444 2528 460 Output Total 1945 1974 1382 201 Balance 254 1560 1146 259 Weight 204 lb 207 lb 210 lb 210 lb - Labs 05/27/18 04:28 05/28/18 04:22 Diabetes panel 05/28/18 Range/Units 04:22 Sodium 134 (133-145) mmol/L Potassium 3.6 (3.3-5.1) mmol/L Chloride 104 (96-108) mmol/L Carbon Dioxide 19 L (22-30) mmol/L BUN 18 (8-23) mg/dl Creatinine 1.2 (0.7-1.2) mg/dl Glucose 171 H (70-105) mg/dL Calcium 8.3 L (8.6-10.4) mg/dl AST 42 H (0-37) U/l ALT 55 H (0-40) U/l Alkaline Phosphatase 107 (39-117) U/L Total Protein 5.8 L (5.9-8.4) gm/dL Albumin 2.8 L (3.2-5.2) gm/dL Triglycerides 94 (<150) mg/dl Calcium panel 05/28/18 Range/Units 04:22 Calcium 8.3 L (8.6-10.4) mg/dl Phosphorus 2.6 L (2.7-4.5) mg/dL Albumin 2.8 L (3.2-5.2) gm/dL Pituitary panel 05/28/18 Range/Units 04:22 Sodium 134 (133-145) mmol/L Potassium 3.6 (3.3-5.1) mmol/L Chloride 104 (96-108) mmol/L Carbon Dioxide 19 L (22-30) mmol/L BUN 18 (8-23) mg/dl Creatinine 1.2 (0.7-1.2) mg/dl Glucose 171 H (70-105) mg/dL Calcium 8.3 L (8.6-10.4) mg/dl Adrenal panel 05/28/18 Range/Units 04:22 Sodium 134 (133-145) mmol/L Potassium 3.6 (3.3-5.1) mmol/L Chloride 104 (96-108) mmol/L Carbon Dioxide 19 L (22-30) mmol/L BUN 18 (8-23) mg/dl Creatinine 1.2 (0.7-1.2) mg/dl Glucose 171 H (70-105) mg/dL Calcium 8.3 L (8.6-10.4) mg/dl Total Bilirubin 0.5 (0.0-1.0) mg/dL AST 42 H (0-37) U/l ALT 55 H (0-40) U/l Alkaline Phosphatase 107 (39-117) U/L Total Protein 5.8 L (5.9-8.4) gm/dL Albumin 2.8 L (3.2-5.2) gm/dL Assessment and Plan (1) Sepsis Status: Acute Current Visit: Yes (2) Diabetic neuropathy Status: Chronic Current Visit: No (3) Diabetic toe ulcer Status: Chronic Current Visit: No - Time Spent With Patient Total time spent is greater than 50% in coordination of care (as documented) at patient's floor/unit and/or counseling patient: Assessment: Satisfactory response to coordinated local wound care and IV antibiotics. SIRS resolved. Treatment plan reviewed with Hospitalist Physician. Dr. Humphreys. Plan: OK for discharge from wound care point of view. Continue out patient home wound care. F/U at wound care clinic in ONE week. Confirm appointment before discharge. 15 - 24 minutes
[2018-05-28] MEDS: TAMSULOSIN 0.4 MG CAPSULE PO SCH (22:23)
[2018-05-28] MEDS: DUTASTERIDE 0.5 MG CAPSULE PO SCH (22:23)
[2018-05-28] MEDS: SENNOSIDES/DOCUSATE SODIUM 1 TAB TABLET PO SCH (22:24)
[2018-05-28] MEDS: SIMVASTATIN 20 MG TABLET PO SCH (22:24)
[2018-05-29] MEDS: PIPERACILLIN SODIUM/TAZOBACTAM 3.375 GM in DEXTROSE 5% IN WATER 50 ML IV SCH ×2 (05:20→11:45)
[2018-05-29] MEDS: CLINDAMYCIN 600 MG in DEXTROSE 5% IN WATER 50 ML IV SCH (05:50)
[2018-05-29 06:01] LABS: ALT/SGPT 42 U/l (0-40); Albumin 2.7 gm/dL (3.2-5.2); Albumin/Globulin Ratio 0.9 (1.0-2.3); Alkaline Phosphatase 103 U/L (39-117); Bilirubin,Direct < 0.2 mg/dL (0.0-0.3); Blood Urea Nitrogen 16 mg/dl (8-23); Gamma Glutamyl Transpeptidase 42 U/L (8-61); Uric Acid 2.6 mg/dL (2.5-8.0)
[2018-05-29] MEDS: 0.9 % SODIUM CHLORIDE 10 ML SYRINGE IV SCH (06:45)
[2018-05-29] MEDS: INSULIN LISPRO 1 UNIT/0.01 ML UNIT SQ SCH ×2 (07:46→11:57)
[2018-05-29] MEDS: REPAGLINIDE 1 MG TABLET PO SCH ×2 (07:46→11:45)
[2018-05-29] MEDS: RIVAROXABAN 15 MG TABLET PO SCH (07:46)
--- NOTE | 2018-05-29 09:01 | Internal Med Progress Note ---
Medical - PN: Subj Patient information: Note initiated : 05/29/18 at 9:00 am Service Date, if different from initiated Date: [] Patient: Marcos,Asa a 88 y/o M admitted on 05/24/18 for weakness. Chief Complaint: [] Interval history: Mr. Rodríguez is a 88 year old M known diabetic with medications including foot ulcers/neuropathy being managed the wound care clinic. Patient presents to the ER with 2 days' onset of worsening weakness inability to bear weight and pain along with redness involving left lower extremity. Patient endorses associated shaking chills and fever along with increasing malaise. Per family patient has been quite active until recently and has had a progressive decline since development of lower extremity ulcer. he lives at [facility] and receives help from his grandson Papo. He denies recent fall, trauma, sick contacts rate he denies chest pain headache but feels very weak and lethargic and was able to only answering yes and no. Initial workup was consistent with severe [place] [address], lactic acid of 4.1 and fever of 102. Patient was started on broad antibiotic coverage after cultures were drawn. Subsequently hospitalist service was consulted At the time evaluation patient is in extreme distress unable to talk experiencing rigors. Blood pressure dropped with heart rate consistently around 130. 4 L of crystalloids was rapidly infused along with initiation of pressors after multiple IV accesses were secured. Initial [place] score 16. 05/25-patient doing better. He vasopressors currently being weaned. Status post 5 L crystalloids. Map at goal. Improving urine output and renal function. White count down to 15,000. Fever defervesced. Cultures pending. CT lower extremity in 24 hours rule out drainable collection. Multiple family members at bedside. Discussed treatment plan/labs and imaging. No questions or concerns expressed by nursing staff or patient 05/26 Patient had no overnight events. Little cantankerous this morning. The redness down into the foot seems improved today. And his pain seems to be better. Leukocytosis resolved. Lactate good. CRP improving. No new complaints other than little bit of a cough with sinus congestion. No chest pain or shortness of breath 05/27 States he always has a hard time sleeping. No events overnight no new changes. No leg pain today. 05/28 Slept better last night. No new complaints. No issues overnight. De-escalate antibiotics. 05/29 No overnight events. No new complaints. Adamantly refuses half-way facility even after my discussion with him the concern about his safety. He does have family that he lives with and after discussion with case management was for them to come in and be educated on taking care of him. Review of Systems: denies headache/fever/chills/nausea/vomiting/chest or abdominal pain/dyspnea/diarrhea. Otherwise see above. - Constitutional Vitals: Vital Signs Temp Pulse Resp BP Pulse Ox 97.6 F 89 20 127/77 95 05/29/18 08:00 05/29/18 08:00 05/29/18 08:00 05/29/18 08:00 05/29/18 08:00 Period Temp Pulse Resp BP Sys/Gastelum Pulse Ox Last 24 Hr 97.6 F-99.0 F 64-89 18-20 101-141/60-85 94-97 Intake and Output 05/28/18 05/29/18 05/29/18 21:59 05:59 13:59 Intake Total 464 304 Output Total 700 225 Balance -236 79 Weight 98.656 kg Intake & Output: Intake & Output 05/28/18 05/29/18 05/29/18 21:59 05:59 13:59 Intake Total 464 304 Output Total 700 225 Balance -236 79 Weight 98.656 kg Intake: IV 104 154 Cleocin 600 mg In Dextrose 5% 54 54 in Water 50 ml @ 100 mls/hr IV Q8H SUDARSHAN Rx#:[id number] Zosyn 3.375 gm In Dextrose 5% 50 100 in Water 50 ml @ 100 mls/hr IV Q6H SUDARSHAN Rx#:[id number] Oral 360 150 Output: Void Amount 700 225 Other: Meal Dinner Percent of Meal Consumed 100% Feeding Ability Independent Urine Appearance Clear Clear Urine Color Straw Bright Yellow Urine Odor Normal Normal Stool Size Small Stool Color Brown Stool Consistency Soft # Bowel Movements 1 Exam: General: Alert, Awake, No acute Distress Eyes/N/T: EOMI, Head/Neck: neck supple, CV: irreg, No murmurs, Pulm: Clear b/l, no wheezing/rhonchi/rales Abd: soft, nontender, +BS x4 Ext: venous stasis changes b/l, swelling left leg with erythema and mild TTP all improving Neuro: Alert, no focal deficits, moves all extremities, Skin: warm/dry Medical - PN: Obj Da - Labs CBC & Chem 7: 05/27/18 04:28 05/29/18 04:08 Labs: Abnormal Lab Results 05/29/18 05/28/18 05/27/18 04:08 04:22 04:28 RBC Hgb Hct RDW Plt Count Lymph % (Auto) Lymph # (Auto) Carbon Dioxide 19 L BUN Creatinine 1.3 H Glucose 162 H 171 H Calcium 8.4 L 8.3 L Phosphorus 2.4 L 2.6 L AST 42 H ALT 42 H 55 H C-Reactive Protein 7.1 H Total Protein 5.7 L 5.8 L Albumin 2.7 L 2.8 L Albumin/Globulin Ratio 0.9 L 0.9 L 05/27/18 05/27/18 04:28 04:28 RBC 3.57 L Hgb 10.5 L Hct 31.8 L RDW 15.0 H Plt Count 109 L Lymph % (Auto) 13.1 L Lymph # (Auto) 0.6 L Carbon Dioxide 19 L BUN 24 H Creatinine Glucose 180 H Calcium 8.0 L Phosphorus 2.2 L AST 47 H ALT 52 H C-Reactive Protein Total Protein 5.8 L Albumin 2.8 L Albumin/Globulin Ratio 0.9 L Meds: Medications Acetaminophen (Tylenol) 650 mg PO Q4-6HP PRN PRN Reason: PAIN/FEVER > 101 Hydrocodone Bitart/Acetaminophen ([place] 5/325mg) 1 tab PO Q4-6HP PRN PRN Reason: PAIN LEVEL 3-6 Albuterol/Ipratropium (Duoneb) 3 ml NEB Q4HP PRN PRN Reason: Shortness Of Breath Dextrose (Dextrose 50%) 0 ml IV UD PRN PRN Reason: Hypoglycemia Diagnostic Test (Pha) (Accu-Chek) 1 each FS ACHS [facility] Last Admin: 05/29/18 07:46 Dose: 1 each Documented by: Docusate Sodium (Colace) 100 mg PO BID [facility] Last Admin: 05/28/18 22:23 Dose: Not Given Documented by: Dutasteride (Avodart) 0.5 mg PO HS [facility] Last Admin: 05/28/18 22:23 Dose: 0.5 mg Documented by: Glucose (Insta-Glucose) 15 gm PO PRN PRN PRN Reason: Hypoglycemia Magnesium Sulfate (Magnesium Sulfate) 2 gm in 50 mls @ 50 mls/hr IV UD PRN PRN Reason: MG = or < 1.7 Norepinephrine Bitartrate 16 (mg/ Sodium Chloride) 250 mls @ 9.38 mls/hr IV Q24HP PRN; Protocol PRN Reason: Hypotension Acetaminophen (Ofirmev) 1,000 mg in 100 mls @ 200 mls/hr IV Q6HP PRN PRN Reason: PAIN/FEVER > 101 Piperacillin Sod/Tazobactam (Sod 3.375 gm/ Dextrose) 50 mls @ 100 mls/hr IV Q6H [facility]; Protocol Last Infusion: 05/29/18 05:59 Dose: Infused Documented by: Clindamycin Phosphate 600 mg/ (Dextrose) 54 mls @ 100 mls/hr IV Q8H [facility]; Protocol Last Admin: 05/29/18 05:50 Dose: 100 mls/hr Documented by: Insulin Glargine (Lantus) 14 unit SQ DAILY [facility] Last Admin: 05/28/18 09:22 Dose: 14 units Documented by: Insulin Human Lispro (Humalog) 0 unit SQ ACHS [facility]; Protocol Last Admin: 05/29/18 07:46 Dose: 2 units Documented by: Iron Carb/Multivit/[place]/Folic Acid (Multivitamin W/Minerals) 1 tab PO DAILY [facility] Last Admin: 05/28/18 09:22 Dose: 1 tab Documented by: Lactobacillus Rhamnosus (Culturelle) 1 cap PO BID [facility] Last Admin: 05/28/18 22:23 Dose: 1 cap Documented by: Metoprolol Succinate (Toprol Xl) 25 mg PO DAILY [facility] Last Admin: 05/28/18 09:23 Dose: 25 mg Documented by: Morphine Sulfate (Morphine) 1 - 2 mg IV Q3HP PRN PRN Reason: PAIN LEVEL > 6 Nicotine (Nicoderm) 21 mg TOPICAL DAILY@1000 [facility] Last Admin: 05/28/18 09:23 Dose: 21 mg Documented by: Ondansetron HCl (Zofran) 4 mg IV Q4-6HP PRN PRN Reason: Nausea And Vomiting Potassium Chloride (Klor-Con) 40 meq PO DAILYP PRN PRN Reason: K+ < 3.5 Repaglinide (Prandin) 0.5 mg PO TIDAC [facility] Last Admin: 04/17/19 07:46 Dose: 0.5 mg Documented by: [facility] Last Admin: 05/29/18 07:46 Dose: 15 mg Documented by: Senna/Docusate Sodium (Senna Plus Tablet) 1 tab PO [facility] Last Admin: 05/28/18 22:24 Dose: Not Given Documented by: Simvastatin (Zocor) 20 mg PO [facility] Last Admin: 05/28/18 22:24 Dose: 20 mg Documented by: Sitagliptin Phosphate (Januvia) 50 mg PO DAILY [facility] Last Admin: 05/28/18 09:23 Dose: 50 mg Documented by: Sodium Chloride (Saline Flush) 10 ml IV UD PRN PRN Reason: FLUSH Sodium Chloride (Saline Flush) 10 ml IV Q8 [facility] Last Admin: 05/29/18 06:45 Dose: 10 ml Documented by: Tamsulosin HCl (Flomax) 0.4 mg PO [facility] Last Admin: 05/28/18 22:23 Dose: 0.4 mg Documented by: - ABG Interpretation ABG results: 05/24/18 15:51 ABG Methemoglobin 0 L VBG pH 7.34 VBG pCO2 27.8 L VBG pO2 64 H VBG HCO3 14.7 L VBG Total CO2 15.5 L VBG O2 Saturation 87.7 H VBG Base Excess -9.5 L Medical - PN: A/P - Time Spent With Patient Total time spent is greater than 50% in coordination of care (as documented) at patient's floor/unit and/or counseling patient: - Narrative A/P Narrative: A: *Septic shock with multiple end-organ dysfunction: resolved -Lactic acidosis / leukocytosis resolved *LLE cellulitis w/lymphangitis, underlying diabetes: improved -CT imaging and evaluation by surgeon, no nec fasc. And lab findings trending in right direction -Likely toxin producing strep, clinda added -CRP improving -No osteo evident on MRI -Acute mental status change: 2/2 above, Resolved -DELIA on ?CKD (unknown baseline, ?CKD): 2/2 above -1.2<1.4<1.6 -DM type II: -Afib, chronic: on BB and xarelto -hyponatremia: Improved Plan: -Dr. Maldonado following -zosyn to augmentin, d/c clinda -cont home BB -basal insulin and SSI -pt/ot -ppx: Rivaroxaban awaiting placement DNR Medical - PN: Qual - VTE Deep Vein Thrombosis/Pulmonary Embolism Present on Admission: No
[2018-05-29] MEDS: MULTIVIT,THER IRON,CA,FA & MIN 1 TABLET PO SCH (09:31)
[2018-05-29] MEDS: LACTOBACILLUS 1 CAPSULE PO SCH (09:31)
[2018-05-29] MEDS: DOCUSATE SODIUM 100 MG CAPSULE PO SCH (09:31)
[2018-05-29] MEDS: sitaGLIPtin 50 MG TABLET PO SCH (09:32)
[2018-05-29] MEDS: INSULIN GLARGINE, HUMAN 1 UNIT/0.01 ML SQ SCH (09:32)
[2018-05-29] MEDS: METOPROLOL SUCCINATE 25 MG TAB.XL.24H PO SCH (09:32)
[2018-05-29] MEDS: NICOTINE 21 MG PATCH TOPICAL SCH (09:32)
== END 2018-05-29 15:10 | disposition home or self-care (01) | DRG 871 ==
LOC: ED 11:53 → ICU 15:20 → MEDSUR 05-26 18:00
PROVIDERS: ADMIT Internal Medicine; ATTEND Internal Medicine